=== PATIENT | female | born 1960 | race Hispanic/Latino ===

== ENCOUNTER 2017-08-07 22:46 | Emergency (ER) | payer MEDICARE ==
[2017-08-07 23:13] LABS: BASOPHILS % (AUTO) 0.7 % (0.0-5.0); EOSINOPHILS % (AUTO) 2.1 % (0.0-8.0); LYMPHOCYTES % (AUTO) 30.6 % (21.0-51.0); MEAN CORPUSCULAR HEMOGLOBIN 30.1 pg (27.0-33.0); MEAN CORPUSCULAR HGB CONC 34.3 g/dL (32.0-36.0); MEAN CORPUSCULAR VOLUME 87.6 fL (79-99); MONOCYTES % (AUTO) 9.3 % (3.0-13.0); NEUTROPHILS % (AUTO) 57.3 % (40.0-77.0); PLATELET COUNT (AUTO) 254 K/uL (130-400); RED BLOOD CELL COUNT(AUTO) 4.23 MIL/uL (4.00-5.50); RED CELL DISTRIBUTION WIDTH 12.1 % (11.0-15.5); WHITE BLOOD COUNT (AUTO) 6.8 K/uL (4.8-10.8)
[2017-08-07 23:31] LABS: CREATININE 0.5 mg/dL (0.5-1.5); POTASSIUM 3.9 mmol/L (3.5-5.1)
[2017-08-08] MEDS ORDERED: CEFTRIAXONE SODIUM 1 GM ONE (00:16)
[2017-08-08] MEDS ORDERED: LIDOCAINE HCL-MPF 1% 2ML VIAL ONE (00:16)
== END 2017-08-08 00:50 | disposition home or self-care (01) ==
LOC: EDH 22:46
DX: L03.116 Cellulitis of left lower limb (principal); E11.9 Type 2 diabetes mellitus without complications; I10 Essential (primary) hypertension
CPT/HCPCS: 36415; 73630; 80048; 85025; 96372; 99285; J0696; J3490

== ENCOUNTER 2017-08-11 21:19 | Inpatient (IN) | payer MEDICARE ==
[~2017-08-11] VITALS: Ht 149.9 cm; Wt 55.1 kg
[2017-08-11] MEDS ORDERED: SODIUM CHLORIDE 0.9% 1000ML 1,000 ML IV ONE (21:44)
[2017-08-11] MEDS ORDERED: ACETAMINOPHEN 325 MG TAB ONE (21:44)
[2017-08-11] MEDS ORDERED: VANCOMYCIN 1GM+NS 250ML 250 ML IV ONE (22:15)
[2017-08-11] MEDS ORDERED: CEFTRIAXONE SODIUM 1 GM ONE (22:15)
[2017-08-11 22:18] LABS: BASOPHILS % (AUTO) 0.6 % (0.0-5.0); EOSINOPHILS % (AUTO) 1.3 % (0.0-8.0); HEMATOCRIT 35.4 % (36-48); MEAN CORPUSCULAR HEMOGLOBIN 30.4 pg (27.0-33.0); MEAN CORPUSCULAR HGB CONC 34.9 g/dL (32.0-36.0); MEAN CORPUSCULAR VOLUME 87.1 fL (79-99); MONOCYTES % (AUTO) 7.8 % (3.0-13.0); NEUTROPHILS % (AUTO) 69.3 % (40.0-77.0); PLATELET COUNT (AUTO) 288 K/uL (130-400); RED BLOOD CELL COUNT(AUTO) 4.07 MIL/uL (4.00-5.50); RED CELL DISTRIBUTION WIDTH 12.1 % (11.0-15.5); WHITE BLOOD COUNT (AUTO) 7.2 K/uL (4.8-10.8)
[2017-08-11 22:24] LABS: CREATININE 0.6 mg/dL (0.5-1.5); POTASSIUM 3.9 mmol/L (3.5-5.1)
[2017-08-11 22:28] LABS: ALBUMIN 3.3 g/dL (3.5-5.0); BILIRUBIN,DIRECT 0.1 mg/dL (0.0-0.3); BILIRUBIN,TOTAL 0.5 mg/dL (0.2-1.0); TOTAL PROTEIN, SERUM 7.6 g/dL (6.0-8.3)
[2017-08-12] MEDS ORDERED: CLONIDINE HCL 0.1 MG TABLET PO PRN (00:45)
[2017-08-12] MEDS ORDERED: VANCOMYCIN PROTOCOL PER PHARMACY IV PRN (00:45)
[2017-08-12] MEDS ORDERED: MORPHINE SULFATE 2 MG/ML 1ML SYG IVP PRN ×2 (00:45)
[2017-08-12] MEDS ORDERED: DEXTROSE 50%-WATER 50 ML DISP.SYRIN IV PRN (00:45)
[2017-08-12] MEDS ORDERED: POTASSIUM CHLORIDE 20 MEQ ERTAB PO PRN (00:45)
[2017-08-12] MEDS ORDERED: ONDANSETRON HCL 4 MG/2 ML VIAL IVP PRN (00:45)
[2017-08-12] MEDS ORDERED: HYDRALAZINE HCL 20 MG/ML VIAL IV PRN (00:45)
[2017-08-12] MEDS ORDERED: POTASSIUM CHLORIDE 20MEQ/100ML 100 ML IV PRN (00:45)
[2017-08-12] MEDS ORDERED: ACETAMINOPHEN 325 MG TAB PO PRN (00:45)
[2017-08-12] MEDS ORDERED: POTASSIUM CHLORIDE 10% ELIXIR 20 MEQ/15 ML UDCUP PO PRN (00:45)
[2017-08-12] MEDS ORDERED: LACTULOSE 20 GM/30 ML UDCUP PO PRN (00:45)
[2017-08-12] MEDS ORDERED: SODIUM CHLORIDE 0.9% 1000ML 1,000 ML IV SCH (00:45)
[2017-08-12] MEDS ORDERED: LIDOCAINE HCL-MPF 1% 2ML VIAL IVP PRN (00:45)
[2017-08-12] MEDS ORDERED: GLUCAGON 1MG KIT 1 MG ML IM PRN (00:45)
[2017-08-12 01:13] LABS: APPEARANCE,URINE Cloudy (CLEAR); BILIRUBIN,URINE Negative (NEGATIVE); COLOR,URINE Yellow (YELLOW); GLUCOSE, URINE (UA) >=1000 mg/dL (NEGATIVE); KETONES,URINE Negative (NEGATIVE); LEUKOCYTE ESTERASE ,URINE Negative (NEGATIVE); NITRATE,URINE Negative (NEGATIVE); OCCULT BLOOD,URINE Trace (NEGATIVE); PROTEIN,URINE Negative (NEGATIVE); UROBILINOGEN,URINE 0.2 mg/dL (0.2-1.0)
[2017-08-12 01:20] LABS: BACTERIA,URINE None Seen /HPF (None Seen); MUCUS,URINE Few LPF (None Seen); SQUAMOUS EPITHELIAL CELL,UR Few /LPF (0-2); WBC,URINE 0-1 /HPF (0-1)
[2017-08-12 04:40] LABS: BASOPHILS % (AUTO) 0.8 % (0.0-5.0); EOSINOPHILS % (AUTO) 2.6 % (0.0-8.0); HEMATOCRIT 31.4 % (36-48); LYMPHOCYTES % (AUTO) 27.2 % (21.0-51.0); MEAN CORPUSCULAR HEMOGLOBIN 29.9 pg (27.0-33.0); MEAN CORPUSCULAR HGB CONC 34.2 g/dL (32.0-36.0); MEAN CORPUSCULAR VOLUME 87.5 fL (79-99); MONOCYTES % (AUTO) 10.9 % (3.0-13.0); NEUTROPHILS % (AUTO) 58.5 % (40.0-77.0); NUCLEATED RED BLOOD CELLS 0.1 % (0.0-0.19); PLATELET COUNT (AUTO) 222 K/uL (130-400); RED BLOOD CELL COUNT(AUTO) 3.58 MIL/uL (4.00-5.50); RED CELL DISTRIBUTION WIDTH 12.1 % (11.0-15.5)
[2017-08-12 04:47] LABS: CREATININE 0.4 mg/dL (0.5-1.5); POTASSIUM 3.4 mmol/L (3.5-5.1)
[2017-08-12 04:53] LABS: HEMOGLOBIN A1C 11.7 % (4.0-6.0)
[2017-08-12] MEDS ORDERED: POTASSIUM CHLORIDE 20 MEQ ERTAB PO ONE ×2 (05:02→08:27)
[2017-08-12 05:09] LABS: INR 1.06 (0.85-1.15); PROTHROMBIN TIME 11.1 SEC (9.6-11.6)
[2017-08-12 05:44] LABS: ERYTHROCYTE SEDIMENTATION RATE 55 MM/HR (0-15)
[2017-08-12] MEDS: INSULIN HUMULIN R 100 UNIT/ML 3ML SQ SCH ×4 (07:30→20:45)
[2017-08-12 09:11] VITALS: BP 129/96
[2017-08-12] MEDS ORDERED: ACETAMINOPHEN-CODEINE 300/30MG TAB PO PRN (09:30)
[2017-08-12] MEDS ORDERED: KETOROLAC TROMETHAMINE 15MG/ML IV PRN (09:30)
[2017-08-12 12:00] VITALS: BP 118/84
[2017-08-12] MEDS: FAMOTIDINE 20MG TAB 20 MG TAB PO SCH ×2 (12:36→20:39)
[2017-08-12] MEDS: LEVOFLOXACIN 500 MG/D5W 100 ML 100 ML IV SCH (12:36)
[2017-08-12] MEDS ORDERED: VANCOMYCIN 1GM+NS 250ML 250 ML IV SCH (12:45)
[2017-08-12] MEDS ORDERED: COMPOUND IV REFRIGERATED 1 EACH IVSOLN MISC PRN (13:00)
[2017-08-12] MEDS: VANCOMYCIN 0.75 GM in N.S. 250 ML IV SCH (14:48)
[2017-08-12 16:00] VITALS: BP 111/77
[2017-08-12 19:45] VITALS: BP 128/81
[2017-08-12] MEDS: ACETAMINOPHEN-CODEINE 300/30MG TAB PO PRN (20:39)
[2017-08-12 23:53] VITALS: BP 119/76
[2017-08-13] MEDS: VANCOMYCIN 0.75 GM in N.S. 250 ML IV SCH (00:34)
[2017-08-13 04:00] VITALS: BP 107/70
[2017-08-13 05:49] LABS: BASOPHILS % (AUTO) 0.3 % (0.0-5.0); EOSINOPHILS % (AUTO) 3.9 % (0.0-8.0); HEMATOCRIT 32.4 % (36-48); LYMPHOCYTES % (AUTO) 35.7 % (21.0-51.0); MEAN CORPUSCULAR HEMOGLOBIN 29.9 pg (27.0-33.0); MEAN CORPUSCULAR HGB CONC 34.1 g/dL (32.0-36.0); MEAN CORPUSCULAR VOLUME 87.6 fL (79-99); NEUTROPHILS % (AUTO) 51.1 % (40.0-77.0); PLATELET COUNT (AUTO) 264 K/uL (130-400); RED CELL DISTRIBUTION WIDTH 12.1 % (11.0-15.5); WHITE BLOOD COUNT (AUTO) 5.7 K/uL (4.8-10.8)
[2017-08-13 06:13] LABS: CREATININE 0.4 mg/dL (0.5-1.5)
[2017-08-13] MEDS: INSULIN HUMULIN R 100 UNIT/ML 3ML SQ SCH ×4 (06:34→20:44)
[2017-08-13 07:24] VITALS: BP 114/66
[2017-08-13] MEDS: LEVOFLOXACIN 500 MG/D5W 100 ML 100 ML IV SCH (10:09)
[2017-08-13] MEDS: FAMOTIDINE 20MG TAB 20 MG TAB PO SCH ×2 (10:09→20:39)
[2017-08-13] MEDS: ENOXAPARIN SODIUM 30 MG/0.3 ML SQ SCH (10:09)
[2017-08-13] MEDS: ASPIRIN 81MG TAB.CHEW PO SCH (10:09)
[2017-08-13 11:17] VITALS: BP 139/94
[2017-08-13] MEDS ORDERED: INSULIN HUMULIN R 100 UNIT/ML 3ML SQ ONE (12:06)
[2017-08-13 16:30] VITALS: BP 127/91
[2017-08-13] MEDS ORDERED: VANCOMYCIN 1.5 GM in SODIUM CHLORIDE 0.9% 250 ML IV SCH (16:45)
[2017-08-13 20:00] VITALS: BP 136/93
[2017-08-14] VITALS (19 sets, daily range): BP systolic 108–144; BP diastolic 71–95
[2017-08-14] MEDS: VANCOMYCIN 1GM+NS 250ML 250 ML IV SCH ×3 (05:42→21:55)
[2017-08-14] MEDS ORDERED: SODIUM CHLORIDE 0.9% 1000ML 1,000 ML IV ONE (06:17)
[2017-08-14] MEDS: INSULIN HUMULIN R 100 UNIT/ML 3ML SQ SCH ×4 (06:21→22:03)
[2017-08-14 06:26] LABS: BASOPHILS % (AUTO) 0.6 % (0.0-5.0); EOSINOPHILS % (AUTO) 4.2 % (0.0-8.0); HEMATOCRIT 33.4 % (36-48); LYMPHOCYTES % (AUTO) 33.3 % (21.0-51.0); MEAN CORPUSCULAR HGB CONC 35.2 g/dL (32.0-36.0); MONOCYTES % (AUTO) 7.2 % (3.0-13.0); NEUTROPHILS % (AUTO) 54.7 % (40.0-77.0); PLATELET COUNT (AUTO) 291 K/uL (130-400); RED CELL DISTRIBUTION WIDTH 12.1 % (11.0-15.5); WHITE BLOOD COUNT (AUTO) 5.4 K/uL (4.8-10.8)
[2017-08-14] MEDS ORDERED: BUPIVACAINE/PF 0.5% 30ML VIAL ONE (06:26)
[2017-08-14] MEDS ORDERED: LIDOCAINE HCL 1% 20 ML VIAL ONE (06:26)
[2017-08-14 06:28] LABS: CREATININE 0.5 mg/dL (0.5-1.5); POTASSIUM 3.9 mmol/L (3.5-5.1)
[2017-08-14] MEDS ORDERED: ONDANSETRON HCL 4 MG/2 ML VIAL ONE (06:45)
[2017-08-14] MEDS ORDERED: PROPOFOL 10 MG/ML 20ML VIAL IV ONE (06:45)
[2017-08-14] MEDS ORDERED: LIDOCAINE PF 2% 5ML ABBOJECT ONE (06:45)
[2017-08-14] MEDS ORDERED: FENTANYL CITRATE PF 50 MCG/1 ML 2ML VIAL ONE (06:47)
[2017-08-14] MEDS ORDERED: NEOMY SULF/BACITRAC ZN/POLY OINT 30GM TUBE TP ONE (07:03)
[2017-08-14] MEDS: ENOXAPARIN SODIUM 30 MG/0.3 ML SQ SCH (09:00)
[2017-08-14] MEDS: ASPIRIN 81MG TAB.CHEW PO SCH (09:57)
[2017-08-14] MEDS: FAMOTIDINE 20MG TAB 20 MG TAB PO SCH ×2 (09:57→21:50)
[2017-08-14] MEDS: LEVOFLOXACIN 500 MG/D5W 100 ML 100 ML IV SCH (09:57)
[2017-08-14] MEDS: MUPIROCIN OINTMENT 22 GM TUBE TP SCH (15:08)
[2017-08-14] MEDS ORDERED: PREG50 PO (15:24)
[2017-08-14] MEDS ORDERED: LISI-613 PO (15:24)
[2017-08-14] MEDS ORDERED: INSU100I24 SQ (15:24)
[2017-08-14] MEDS: PREGABALIN 25 MG CAP PO SCH (21:50)
[2017-08-14] MEDS: INSULIN GLARGINE 100 UNITS/ML 10 ML VIAL SQ SCH (22:02)
[2017-08-15] VITALS: BP 123/84
[2017-08-15 04:00] VITALS: BP 124/87
[2017-08-15 05:29] LABS: HEMATOCRIT 32.1 % (36-48); MEAN CORPUSCULAR HGB CONC 34.4 g/dL (32.0-36.0); MEAN CORPUSCULAR VOLUME 87.2 fL (79-99); PLATELET COUNT (AUTO) 315 K/uL (130-400); RED BLOOD CELL COUNT(AUTO) 3.68 MIL/uL (4.00-5.50); RED CELL DISTRIBUTION WIDTH 12.1 % (11.0-15.5); WHITE BLOOD COUNT (AUTO) 6.3 K/uL (4.8-10.8)
[2017-08-15 05:40] LABS: CREATININE 0.5 mg/dL (0.5-1.5); POTASSIUM 3.7 mmol/L (3.5-5.1)
[2017-08-15] MEDS ORDERED: COMPOUND IV REFRIGERATED 1 EACH IVSOLN MISC PRN (06:30)
[2017-08-15] MEDS: VANCOMYCIN 1.25 GM in SODIUM CHLORIDE 0.9% 250 ML IV SCH ×3 (06:48→23:08)
[2017-08-15] MEDS: INSULIN HUMULIN R 100 UNIT/ML 3ML SQ SCH ×4 (06:53→21:00)
[2017-08-15 08:00] VITALS: BP 133/92
[2017-08-15] MEDS: INSULIN DEGLUDEC 18 UNIT SQ SCH (09:00)
[2017-08-15] MEDS: PREGABALIN 25 MG CAP PO SCH ×3 (10:49→20:33)
[2017-08-15] MEDS: LISINOPRIL 20 MG TABLET PO SCH (10:49)
[2017-08-15] MEDS: ASPIRIN 81MG TAB.CHEW PO SCH (10:49)
[2017-08-15] MEDS: LEVOFLOXACIN 500 MG/D5W 100 ML 100 ML IV SCH (10:50)
[2017-08-15] MEDS: ACETAMINOPHEN-CODEINE 300/30MG TAB PO PRN (10:50)
[2017-08-15] MEDS: MUPIROCIN OINTMENT 22 GM TUBE TP SCH (10:50)
[2017-08-15] MEDS: ENOXAPARIN SODIUM 30 MG/0.3 ML SQ SCH (11:00)
[2017-08-15] MEDS: FAMOTIDINE 20MG TAB 20 MG TAB PO SCH ×2 (11:00→20:32)
[2017-08-15 11:51] VITALS: BP 129/92
[2017-08-15 16:00] VITALS: BP 120/88
[2017-08-15 20:00] VITALS: BP 117/83
[2017-08-15] MEDS: INSULIN GLARGINE 100 UNITS/ML 10 ML VIAL SQ SCH (21:48)
[2017-08-16] VITALS: BP 110/74
[2017-08-16 04:00] VITALS: BP 115/82
[2017-08-16] MEDS: ACETAMINOPHEN-CODEINE 300/30MG TAB PO PRN ×2 (04:11→10:20)
[2017-08-16] MEDS: VANCOMYCIN 1.25 GM in SODIUM CHLORIDE 0.9% 250 ML IV SCH ×2 (07:05→14:00)
[2017-08-16 07:30] VITALS: BP 120/81
[2017-08-16] MEDS: INSULIN HUMULIN R 100 UNIT/ML 3ML SQ SCH ×2 (07:30→11:30)
[2017-08-16] MEDS: INSULIN DEGLUDEC 18 UNIT SQ SCH (09:00)
[2017-08-16] MEDS: PREGABALIN 25 MG CAP PO SCH ×2 (09:00→14:00)
[2017-08-16] MEDS: FAMOTIDINE 20MG TAB 20 MG TAB PO SCH (10:17)
[2017-08-16] MEDS: ENOXAPARIN SODIUM 30 MG/0.3 ML SQ SCH (10:17)
[2017-08-16] MEDS: ASPIRIN 81MG TAB.CHEW PO SCH (10:17)
[2017-08-16] MEDS: LISINOPRIL 20 MG TABLET PO SCH (10:18)
[2017-08-16] MEDS: MUPIROCIN OINTMENT 22 GM TUBE TP SCH (10:18)
[2017-08-16] MEDS: LEVOFLOXACIN 500 MG/D5W 100 ML 100 ML IV SCH (10:18)
== END 2017-08-16 16:30 | disposition home health service (06) | DRG 240 ==
LOC: EDH 21:19 → EDHIP 23:53 → 4CH 08-12 08:23
PROVIDERS: ADMIT Internal Medicine; ATTEND Internal Medicine
PROC: 0Y6N0ZB Detachment at Left Foot, Partial 2nd Ray, Open Approach (ICD-10-PCS; principal; 2017-08-14 07:00)
DX: E11.52 Type 2 diabetes mellitus with diabetic peripheral angiopathy with gangrene (principal); E11.42 Type 2 diabetes mellitus with diabetic polyneuropathy; E11.621 Type 2 diabetes mellitus with foot ulcer; L03.116 Cellulitis of left lower limb; M86.8X7 Other osteomyelitis, ankle and foot; E11.65 Type 2 diabetes mellitus with hyperglycemia; L97.509 Non-pressure chronic ulcer of other part of unspecified foot with unspecified severity; E11.69 Type 2 diabetes mellitus with other specified complication; I10 Essential (primary) hypertension; Z90.49 Acquired absence of other specified parts of digestive tract; Z28.21 Immunization not carried out because of patient refusal
CPT/HCPCS: 36415; 71045; 73630; 80048; 80076; 80202; 81001; 82948; 83036; 83605; 85025; 85027; 85610; 85651; 87040; 87070; 87076; 87077; 87186; 88305; 93005; 93925; 96372; J0696; J1650; J1815; J1956; J2001; J2405; J2704; J3010; J3370; J3490; J7030

== ENCOUNTER → 2017-08-23 | Outpatient (CLI) | payer MEDICARE ==
[~2017-08-23] MED LIST: INSU100I24 SQ; LISI-613 PO; PREG50 PO
[2017-08-23 14:22] VITALS: BP 148/102
== END | disposition home or self-care (01) ==
LOC: WHH 08:45
PROVIDERS: ATTEND Podiatrist Foot & Ankle Surgery
DX: T87.89 Other complications of amputation stump (principal); E11.621 Type 2 diabetes mellitus with foot ulcer; L97.521 Non-pressure chronic ulcer of other part of left foot limited to breakdown of skin; E11.42 Type 2 diabetes mellitus with diabetic polyneuropathy; I10 Essential (primary) hypertension; E11.69 Type 2 diabetes mellitus with other specified complication; M86.8X7 Other osteomyelitis, ankle and foot; E11.65 Type 2 diabetes mellitus with hyperglycemia; E11.52 Type 2 diabetes mellitus with diabetic peripheral angiopathy with gangrene; I96 Gangrene, not elsewhere classified; Y83.5 Amputation of limb(s) as the cause of abnormal reaction of the patient, or of later complication, without mention of misadventure at the time of the procedure
CPT/HCPCS: 11042; A4450; A6209; G0463

== ENCOUNTER → 2017-08-30 | Outpatient (CLI) | payer MEDICARE ==
[~2017-08-30] MED LIST changes: +LIDOCAINE/PRILOCAINE CREAM 5GM TUBE TP ONE
[2017-08-30 15:27] VITALS: BP 136/98
== END | disposition home or self-care (01) ==
LOC: WHH 09:30
PROVIDERS: ATTEND Podiatrist Foot & Ankle Surgery
DX: T87.89 Other complications of amputation stump (principal); E11.621 Type 2 diabetes mellitus with foot ulcer; L97.521 Non-pressure chronic ulcer of other part of left foot limited to breakdown of skin; I10 Essential (primary) hypertension; E11.69 Type 2 diabetes mellitus with other specified complication; M86.8X7 Other osteomyelitis, ankle and foot; E11.42 Type 2 diabetes mellitus with diabetic polyneuropathy; E11.52 Type 2 diabetes mellitus with diabetic peripheral angiopathy with gangrene; Z90.49 Acquired absence of other specified parts of digestive tract; Y83.5 Amputation of limb(s) as the cause of abnormal reaction of the patient, or of later complication, without mention of misadventure at the time of the procedure
CPT/HCPCS: 11042; A6209; J3490; L3260

== ENCOUNTER 2018-04-10 11:39 | Emergency (ER) | payer MEDICARE ==
[~2018-04-10 11:39] MED LIST changes: -LIDOCAINE/PRILOCAINE CREAM 5GM TUBE TP ONE
== END 2018-04-10 12:11 | disposition home or self-care (01) ==
LOC: EDH 11:39
DX: S91.312A Laceration without foreign body, left foot, initial encounter (principal); E11.9 Type 2 diabetes mellitus without complications; I10 Essential (primary) hypertension; X58.XXXA Exposure to other specified factors, initial encounter; Y93.89 Activity, other specified; Y92.098 Other place in other non-institutional residence as the place of occurrence of the external cause; Y99.8 Other external cause status

== ENCOUNTER 2018-09-26 11:54 | Emergency (ER) | payer MEDICARE | END 2018-09-26 12:57 | disposition home or self-care (01) | LOC: EDH 11:54 | DX: L03.115 Cellulitis of right lower limb (principal); I10 Essential (primary) hypertension; E11.9 Type 2 diabetes mellitus without complications ==

== ENCOUNTER 2018-10-11 19:38 | Emergency (ER) | payer MEDICARE ==
[2018-10-11 20:05] LABS: BASOPHILS % (AUTO) 1.2 % (0.0-5.0); EOSINOPHILS % (AUTO) 3.1 % (0.0-8.0); HEMATOCRIT 41.3 % (36-48); LYMPHOCYTES % (AUTO) 41.2 % (21.0-51.0); MEAN CORPUSCULAR HEMOGLOBIN 29.7 pg (27.0-33.0); MEAN CORPUSCULAR HGB CONC 33.6 g/dL (32.0-36.0); MEAN CORPUSCULAR VOLUME 88.4 fL (79-99); MONOCYTES % (AUTO) 6.2 % (3.0-13.0); NEUTROPHILS % (AUTO) 48.3 % (40.0-77.0); PLATELET COUNT (AUTO) 196 K/uL (130-400); RED BLOOD CELL COUNT(AUTO) 4.67 MIL/uL (4.00-5.50); RED CELL DISTRIBUTION WIDTH 13.4 % (11.0-15.5); WHITE BLOOD COUNT (AUTO) 5.6 K/uL (4.8-10.8)
[2018-10-11 20:14] LABS: CREATININE 0.6 mg/dL (0.5-1.5); POTASSIUM 3.8 mmol/L (3.5-5.1)
[2018-10-11 20:19] LABS: ALBUMIN 4.1 g/dL (3.5-5.0); BILIRUBIN,TOTAL 0.5 mg/dL (0.2-1.0)
[2018-10-11] MEDS ORDERED: CEFTRIAXONE SODIUM 2 GM VIAL IVP ONE (20:21)
== END 2018-10-11 22:17 | disposition home or self-care (01) ==
LOC: EDH 19:38
DX: L03.031 Cellulitis of right toe (principal); I10 Essential (primary) hypertension; E11.9 Type 2 diabetes mellitus without complications; Z98.890 Other specified postprocedural states
CPT/HCPCS: 36415; 73630; 80053; 85025; 96374; 99285; J0696

== ENCOUNTER → 2018-10-31 | Outpatient (CLI) | payer MEDICARE ==
[~2018-10-31] MED LIST changes: +GLIP10TA9 PO; +HONEY 1 APPL/ML TUBE TP ONE; +LIDOCAINE/PRILOCAINE CREAM 5GM TUBE TP ONE; +METF-444 PO
[2018-10-31 15:01] VITALS: BP 121/77
== END | disposition home or self-care (01) ==
LOC: WHH 10:15
PROVIDERS: ATTEND Podiatrist Foot & Ankle Surgery
DX: E11.621 Type 2 diabetes mellitus with foot ulcer (principal); L97.521 Non-pressure chronic ulcer of other part of left foot limited to breakdown of skin; I10 Essential (primary) hypertension; E11.69 Type 2 diabetes mellitus with other specified complication; M86.8X7 Other osteomyelitis, ankle and foot; E11.42 Type 2 diabetes mellitus with diabetic polyneuropathy; E11.52 Type 2 diabetes mellitus with diabetic peripheral angiopathy with gangrene; Z90.49 Acquired absence of other specified parts of digestive tract
CPT/HCPCS: 11042; A4450; J3490; L3260

== ENCOUNTER → 2018-11-14 | Outpatient (CLI) | payer MEDICARE ==
[~2018-11-14] MED LIST changes: -HONEY 1 APPL/ML TUBE TP ONE; -LIDOCAINE/PRILOCAINE CREAM 5GM TUBE TP ONE
[2018-11-14 11:08] LABS: BASOPHILS % (AUTO) 0.6 % (0.0-5.0); EOSINOPHILS % (AUTO) 3.5 % (0.0-8.0); HEMATOCRIT 36.2 % (36-48); LYMPHOCYTES % (AUTO) 35.6 % (21.0-51.0); MEAN CORPUSCULAR HGB CONC 33.9 g/dL (32.0-36.0); MEAN CORPUSCULAR VOLUME 88.5 fL (79-99); NEUTROPHILS % (AUTO) 54.3 % (40.0-77.0); NUCLEATED RED BLOOD CELLS 0.1 % (0.0-0.19); PLATELET COUNT (AUTO) 194 K/uL (130-400); RED BLOOD CELL COUNT(AUTO) 4.09 MIL/uL (4.00-5.50); WHITE BLOOD COUNT (AUTO) 5.1 K/uL (4.8-10.8)
[2018-11-14 11:21] LABS: CREATININE 0.5 mg/dL (0.5-1.5); POTASSIUM 3.6 mmol/L (3.5-5.1)
[2018-11-14 11:26] LABS: ALBUMIN 3.4 g/dL (3.5-5.0); BILIRUBIN,TOTAL 0.3 mg/dL (0.2-1.0); TOTAL PROTEIN, SERUM 7.4 g/dL (6.0-8.3)
[2018-11-14 14:30] VITALS: BP 144/97
== END | disposition home or self-care (01) ==
LOC: WHH 10:00
PROVIDERS: ATTEND Podiatrist Foot & Ankle Surgery
DX: E11.621 Type 2 diabetes mellitus with foot ulcer (principal); L97.521 Non-pressure chronic ulcer of other part of left foot limited to breakdown of skin; I10 Essential (primary) hypertension; E11.69 Type 2 diabetes mellitus with other specified complication; M86.8X7 Other osteomyelitis, ankle and foot; E11.42 Type 2 diabetes mellitus with diabetic polyneuropathy; E11.52 Type 2 diabetes mellitus with diabetic peripheral angiopathy with gangrene; I96 Gangrene, not elsewhere classified; Z90.49 Acquired absence of other specified parts of digestive tract
CPT/HCPCS: 36415; 80053; 85025; G0463

== ENCOUNTER → 2018-11-15 | Outpatient (CLI) | payer MEDICARE ==
[~2018-11-15] MED LIST changes: +AMOX125T PO; +GADODIAMIDE 10 MMOL/20 ML VIAL IV ONE; +LEVO500T2 PO
== END | disposition home or self-care (01) ==
LOC: RAH 16:08
PROVIDERS: ATTEND Podiatrist Foot & Ankle Surgery
DX: E11.621 Type 2 diabetes mellitus with foot ulcer (principal)
CPT/HCPCS: 73720; A9579

== ENCOUNTER → 2018-11-28 | Outpatient (CLI) | payer MEDICARE ==
[~2018-11-28] MED LIST changes: -GADODIAMIDE 10 MMOL/20 ML VIAL IV ONE
[2018-11-28 13:44] VITALS: BP 130/92
== END | disposition home or self-care (01) ==
LOC: WHH 10:00
PROVIDERS: ATTEND Podiatrist Foot & Ankle Surgery
DX: T87.89 Other complications of amputation stump (principal); E11.621 Type 2 diabetes mellitus with foot ulcer; L97.511 Non-pressure chronic ulcer of other part of right foot limited to breakdown of skin; E11.52 Type 2 diabetes mellitus with diabetic peripheral angiopathy with gangrene; I96 Gangrene, not elsewhere classified; E11.42 Type 2 diabetes mellitus with diabetic polyneuropathy; E11.69 Type 2 diabetes mellitus with other specified complication; M86.8X7 Other osteomyelitis, ankle and foot; I10 Essential (primary) hypertension; Z89.422 Acquired absence of other left toe(s); Z90.49 Acquired absence of other specified parts of digestive tract; Y83.5 Amputation of limb(s) as the cause of abnormal reaction of the patient, or of later complication, without mention of misadventure at the time of the procedure
CPT/HCPCS: G0463

== ENCOUNTER 2018-12-12 09:15 | Outpatient (CLI) | payer MEDICARE ==
[2018-12-12 12:34] VITALS: BP 117/80
== END 2018-12-12 15:13 | disposition home or self-care (01) ==
LOC: WHH 09:15
PROVIDERS: ATTEND Podiatrist Foot & Ankle Surgery
DX: T87.89 Other complications of amputation stump (principal); E11.621 Type 2 diabetes mellitus with foot ulcer; L97.511 Non-pressure chronic ulcer of other part of right foot limited to breakdown of skin; E11.52 Type 2 diabetes mellitus with diabetic peripheral angiopathy with gangrene; I96 Gangrene, not elsewhere classified; E11.42 Type 2 diabetes mellitus with diabetic polyneuropathy; E11.69 Type 2 diabetes mellitus with other specified complication; M86.8X7 Other osteomyelitis, ankle and foot; I10 Essential (primary) hypertension; F32.9 Major depressive disorder, single episode, unspecified; Z89.422 Acquired absence of other left toe(s); Z79.4 Long term (current) use of insulin; Z90.49 Acquired absence of other specified parts of digestive tract; Z79.899 Other long term (current) drug therapy; Z79.84 Long term (current) use of oral hypoglycemic drugs; Y83.5 Amputation of limb(s) as the cause of abnormal reaction of the patient, or of later complication, without mention of misadventure at the time of the procedure
CPT/HCPCS: G0463

== ENCOUNTER 2019-04-04 04:07 | Inpatient (IN) | payer MEDICARE ==
[~2019-04-04] VITALS: Ht 124.5 cm; Wt 56.8 kg
[2019-04-04 04:37] LABS: BASOPHILS % (AUTO) 0.4 % (0.0-5.0); EOSINOPHILS % (AUTO) 0.1 % (0.0-8.0); HEMATOCRIT 36.5 % (36-48); MEAN CORPUSCULAR HEMOGLOBIN 30.9 pg (27.0-33.0); MEAN CORPUSCULAR HGB CONC 35.1 g/dL (32.0-36.0); MONOCYTES % (AUTO) 5.9 % (3.0-13.0); NEUTROPHILS % (AUTO) 87.6 % (40.0-77.0); PLATELET COUNT (AUTO) 262 K/uL (130-400); RED BLOOD CELL COUNT(AUTO) 4.15 MIL/uL (4.00-5.50); RED CELL DISTRIBUTION WIDTH 12.6 % (11.0-15.5); WHITE BLOOD COUNT (AUTO) 17.3 K/uL (4.8-10.8)
[2019-04-04] MEDS ORDERED: ONDANSETRON HCL 4 MG/2 ML VIAL ONE (04:38)
[2019-04-04] MEDS ORDERED: ACETAMINOPHEN EXTRA STRENGTH 500 MG TABLET ONE (04:38)
[2019-04-04] MEDS ORDERED: SODIUM CHLORIDE 0.9% 1000ML 1,000 ML IV ONE ×2 (04:39→07:48)
[2019-04-04 04:53] LABS: CREATININE 0.7 mg/dL (0.5-1.5); INR 1.06 (0.85-1.15); PARTIAL THROMBOPLASTIN TIME 27.5 SEC (26.3-35.5); POTASSIUM 3.8 mmol/L (3.5-5.1); PROTHROMBIN TIME 11.1 SEC (9.6-11.6)
[2019-04-04 04:55] LABS: ALBUMIN 3.3 g/dL (3.5-5.0); BILIRUBIN,TOTAL 1.1 mg/dL (0.2-1.0); TOTAL PROTEIN, SERUM 7.9 g/dL (6.0-8.3)
[2019-04-04 04:57] LABS: APPEARANCE,URINE Cloudy (CLEAR); BILIRUBIN,URINE Negative (NEGATIVE); COLOR,URINE Yellow (YELLOW); GLUCOSE, URINE (UA) >=1000 mg/dL (NEGATIVE); KETONES,URINE 40 mg/dL (NEGATIVE); LEUKOCYTE ESTERASE ,URINE Small (NEGATIVE); NITRATE,URINE Positive (NEGATIVE); OCCULT BLOOD,URINE Moderate (NEGATIVE); PH,URINE 8.5 (5.0-8.0); PROTEIN,URINE POS 2+ mg/dL (NEGATIVE)
[2019-04-04 05:04] LABS: BACTERIA,URINE Moderate /HPF (None Seen); MUCUS,URINE Few LPF (None Seen); TRANSITIONAL EPI CELLS,URINE Moderate /HPF (None Seen)
[2019-04-04] MEDS ORDERED: INSULIN HUMULIN R 100 UNIT/ML 3ML ONE (09:13)
[2019-04-04 09:35] VITALS: BP 95/64
[2019-04-04 11:00] VITALS: BP 91/56
[2019-04-04] MEDS ORDERED: DEXTROSE 50%-WATER 50 ML DISP.SYRIN IV PRN (12:15)
[2019-04-04] MEDS ORDERED: GLUCAGON 1MG KIT 1 MG ML IM PRN (12:15)
[2019-04-04] MEDS: SODIUM CHLORIDE 0.9% 1000ML 1,000 ML IV SCH ×3 (13:06→22:08)
[2019-04-04] MEDS: CEFTRIAXONE SODIUM 1 GM IVP SCH (13:07)
[2019-04-04] MEDS: INSULIN R PO SS1 SQ SCH ×3 (13:24→21:18)
[2019-04-04] MEDS: ACETAMINOPHEN 325 MG TAB PO PRN (15:49)
[2019-04-04] MEDS: ONDANSETRON HCL 4 MG/2 ML VIAL IVP PRN (15:51)
[2019-04-04 16:00] VITALS: BP 116/67
--- NOTE | 2019-04-04 16:49 | NUR ---
ADMISSION NOTE Received patient in AM at 0930 from ER. Patient was started on NS at 150mL/hr and she received a dose of rocephin 1mg IV to right hand # 20g; site healthy and patent. Patient stayed in bed without any problems. She subsequently developed nausea, emesis, and a headache and was medicated. At this time she is back to feeling better and stable. She states she had her flu vaccine for this season already at her doctor's office. Refuses pneumonia vaccine. When asked about her home medications, stated they are "somewhere at home". Reminded that medications are needed to enter in computer for physician to restart. Stated her family will bring them.
[2019-04-04 20:00] VITALS: BP 96/56
[2019-04-05 00:38] VITALS: BP 142/71
[2019-04-05] MEDS: CEFTRIAXONE SODIUM 1 GM IVP SCH ×2 (00:46→13:24)
[2019-04-05] MEDS: ONDANSETRON HCL 4 MG/2 ML VIAL IVP PRN (02:08)
[2019-04-05] MEDS: ACETAMINOPHEN 325 MG TAB PO PRN (02:14)
[2019-04-05 04:00] VITALS: BP 140/83
[2019-04-05] MEDS: INSULIN R PO SS1 SQ SCH ×4 (06:46→21:49)
[2019-04-05 08:00] VITALS: BP 149/95
--- NOTE | 2019-04-05 08:00 | NUR ---
AM SHIFT ASSESSMENT
[2019-04-05 11:59] VITALS: BP 143/91
[2019-04-05] MEDS: SODIUM CHLORIDE 0.9% 1000ML 1,000 ML IV SCH (13:31)
--- NOTE | 2019-04-05 14:09 | NUR ---
DCP CM met with pt discussed dc plans. Pt is independent prior to admission, lives at home w/daughter. Denies any equipments/services. Feels safe to go back home, daughter and son able to assist with transportation and needs as necessary. DC plan to home once stable. CM to cont to follow up. Addendum: 04/05/19 at 1410 by CHAZ HARTMAN LVN CM Amended: Links added.
[2019-04-05 16:00] VITALS: BP 151/99
[2019-04-05 20:00] VITALS: BP 134/87
[2019-04-06] VITALS (7 sets, daily range): BP systolic 128–162; BP diastolic 78–96
[2019-04-06] MEDS: CEFTRIAXONE SODIUM 1 GM IVP SCH ×2 (01:08→12:11)
[2019-04-06] MEDS: SODIUM CHLORIDE 0.9% 1000ML 1,000 ML IV SCH ×2 (04:25→15:42)
[2019-04-06] MEDS: ACETAMINOPHEN 325 MG TAB PO PRN (04:29)
[2019-04-06] MEDS: INSULIN R PO SS1 SQ SCH ×4 (06:56→21:43)
[2019-04-06 10:26] LABS: BASOPHILS % (AUTO) 0.5 % (0.0-5.0); EOSINOPHILS % (AUTO) 1.3 % (0.0-8.0); HEMATOCRIT 33.4 % (36-48); LYMPHOCYTES % (AUTO) 22.3 % (21.0-51.0); MEAN CORPUSCULAR HEMOGLOBIN 30.8 pg (27.0-33.0); MEAN CORPUSCULAR HGB CONC 33.6 g/dL (32.0-36.0); MEAN CORPUSCULAR VOLUME 91.6 fL (79-99); MONOCYTES % (AUTO) 7.7 % (3.0-13.0); NEUTROPHILS % (AUTO) 68.2 % (40.0-77.0); PLATELET COUNT (AUTO) 219 K/uL (130-400); RED BLOOD CELL COUNT(AUTO) 3.64 MIL/uL (4.00-5.50); RED CELL DISTRIBUTION WIDTH 12.8 % (11.0-15.5); WHITE BLOOD COUNT (AUTO) 5.8 K/uL (4.8-10.8)
[2019-04-06 11:49] LABS: ERYTHROCYTE SEDIMENTATION RATE 75 MM/HR (0-30)
[2019-04-06 12:14] LABS: CREATININE 0.5 mg/dL (0.5-1.5); POTASSIUM 3.2 mmol/L (3.5-5.1)
[2019-04-06 12:17] LABS: MAGNESIUM 1.4 mg/dL (1.80-2.40); PHOSPHORUS 2.4 mg/dL (2.5-4.9)
[2019-04-06] MEDS ORDERED: PREGABALIN 25 MG CAP PO SCH (14:00)
[2019-04-06] MEDS: METFORMIN HCL 500 MG TABLET PO SCH (17:23)
[2019-04-06] MEDS ORDERED: POTASSIUM CHLORIDE 20MEQ/100ML 100 ML IV PRN (18:30)
[2019-04-06] MEDS ORDERED: POTASSIUM CHLORIDE 10% ELIXIR 20 MEQ/15 ML UDCUP PO PRN (18:30)
[2019-04-06] MEDS ORDERED: LIDOCAINE HCL-MPF 1% 2ML VIAL IV PRN (18:30)
[2019-04-06] MEDS: MAGNESIUM 2GM PREMIX 50ML 50 ML IV PRN (18:56)
[2019-04-06] MEDS: GABAPENTIN 100 MG CAPSULE PO SCH (20:58)
[2019-04-07] MEDS: CEFTRIAXONE SODIUM 1 GM IVP SCH ×2 (01:12→12:48)
[2019-04-07] MEDS: POTASSIUM CHLORIDE 20 MEQ ERTAB PO PRN ×2 (01:16→03:35)
[2019-04-07 03:00] VITALS: BP 137/89
[2019-04-07 05:34] LABS: EOSINOPHILS % (AUTO) 2.1 % (0.0-8.0); HEMATOCRIT 31.6 % (36-48); LYMPHOCYTES % (AUTO) 33.1 % (21.0-51.0); MEAN CORPUSCULAR HEMOGLOBIN 30.5 pg (27.0-33.0); MEAN CORPUSCULAR HGB CONC 33.8 g/dL (32.0-36.0); MEAN CORPUSCULAR VOLUME 90.1 fL (79-99); MONOCYTES % (AUTO) 8.3 % (3.0-13.0); NEUTROPHILS % (AUTO) 55.5 % (40.0-77.0); PLATELET COUNT (AUTO) 266 K/uL (130-400); RED BLOOD CELL COUNT(AUTO) 3.51 MIL/uL (4.00-5.50); RED CELL DISTRIBUTION WIDTH 12.9 % (11.0-15.5); WHITE BLOOD COUNT (AUTO) 4.5 K/uL (4.8-10.8)
[2019-04-07 05:41] LABS: CREATININE 0.6 mg/dL (0.5-1.5); MAGNESIUM 1.9 mg/dL (1.80-2.40)
[2019-04-07] MEDS: INSULIN R PO SS1 SQ SCH ×4 (06:31→20:31)
[2019-04-07] MEDS: MAGNESIUM 2GM PREMIX 50ML 50 ML IV PRN (06:34)
[2019-04-07 08:00] VITALS: BP 141/96
[2019-04-07] MEDS: GABAPENTIN 100 MG CAPSULE PO SCH ×2 (09:20→20:16)
[2019-04-07] MEDS: LISINOPRIL 20 MG TABLET PO SCH (09:21)
[2019-04-07] MEDS: METFORMIN HCL 500 MG TABLET PO SCH ×3 (09:22→16:22)
[2019-04-07 12:00] VITALS: BP 146/90
--- NOTE | 2019-04-07 13:40 | NUR ---
PLACED ON CONTACT ISOLATION FOR REPORT OF ESBL IN BLOOD,
[2019-04-07] MEDS: ZOSYN 3.375GM+NS 50ML 50 ML IV SCH ×2 (15:02→22:47)
[2019-04-07 16:00] VITALS: BP 145/99
[2019-04-07 19:48] VITALS: BP 154/95
[2019-04-07] MEDS ORDERED: LACTULOSE 20 GM/30 ML UDCUP PO PRN (20:30)
[2019-04-07 23:57] VITALS: BP 155/95
[2019-04-08 03:20] VITALS: BP 157/93
[2019-04-08] MEDS: ZOSYN 3.375GM+NS 50ML 50 ML IV SCH ×3 (04:55→23:24)
[2019-04-08] MEDS: INSULIN R PO SS1 SQ SCH ×4 (06:35→23:32)
[2019-04-08 07:36] VITALS: BP 144/99
[2019-04-08] MEDS: METFORMIN HCL 500 MG TABLET PO SCH ×3 (09:13→17:31)
[2019-04-08] MEDS: GABAPENTIN 100 MG CAPSULE PO SCH ×2 (09:13→23:24)
[2019-04-08] MEDS: LISINOPRIL 20 MG TABLET PO SCH (09:13)
[2019-04-08 12:00] VITALS: BP 163/115
[2019-04-08] MEDS ORDERED: HYDRALAZINE HCL 20 MG/ML VIAL IV PRN (14:15)
[2019-04-08] MEDS ORDERED: HYDROCHLOROTHIAZIDE 25 MG TABLET PO SCH (14:15)
[2019-04-08 16:00] VITALS: BP 148/73
[2019-04-08 19:59] VITALS: BP 123/80
[2019-04-08 23:55] VITALS: BP 148/96
[2019-04-09 03:39] VITALS: BP 118/75
[2019-04-09] MEDS: ZOSYN 3.375GM+NS 50ML 50 ML IV SCH ×3 (06:19→21:16)
[2019-04-09] MEDS: INSULIN R PO SS1 SQ SCH ×4 (06:23→21:17)
[2019-04-09 08:00] VITALS: BP 136/81
[2019-04-09] MEDS ORDERED: METFORMIN HCL 500 MG TABLET PO SCH (08:00)
[2019-04-09 08:09] LABS: EOSINOPHILS % (AUTO) 3.9 % (0.0-8.0); HEMATOCRIT 34.1 % (36-48); MEAN CORPUSCULAR HEMOGLOBIN 30.3 pg (27.0-33.0); MEAN CORPUSCULAR HGB CONC 33.8 g/dL (32.0-36.0); MEAN CORPUSCULAR VOLUME 89.9 fL (79-99); MONOCYTES % (AUTO) 7.4 % (3.0-13.0); NEUTROPHILS % (AUTO) 49.7 % (40.0-77.0); PLATELET COUNT (AUTO) 334 K/uL (130-400); RED BLOOD CELL COUNT(AUTO) 3.79 MIL/uL (4.00-5.50); WHITE BLOOD COUNT (AUTO) 4.9 K/uL (4.8-10.8)
[2019-04-09 08:17] LABS: CREATININE 0.7 mg/dL (0.5-1.5); POTASSIUM 3.9 mmol/L (3.5-5.1)
[2019-04-09 08:31] LABS: HEMOGLOBIN A1C 12.2 % (4.0-6.0)
--- NOTE | 2019-04-09 08:50 | NUR ---
DR. WELCH IN TO SEE PT, OK TO DC IF CT SCAN SHOWS NO FURTHER SIGNS OF BLEED. Addendum: 04/09/19 at 1433 by WILTON STORM RN RN ABOVE ENTRY ENTERED ON WRONG PATIENT.
[2019-04-09] MEDS: GABAPENTIN 100 MG CAPSULE PO SCH ×2 (09:03→21:16)
[2019-04-09] MEDS: HYDROCHLOROTHIAZIDE 25 MG TABLET PO SCH (09:03)
[2019-04-09] MEDS: LISINOPRIL 20 MG TABLET PO SCH (09:04)
[2019-04-09] MEDS: GLIPIZIDE 5 MG TABLET PO SCH ×2 (09:04→17:00)
[2019-04-09 09:49] LABS: INR 0.95 (0.85-1.15)
[2019-04-09 11:00] VITALS: BP 137/80
--- NOTE | 2019-04-09 11:00 | NUR ---
PT ACCEPTED AT [facility] LINE PENDING, L[facility] STRE[facility]ER RN NOTIFIED, VERBALIZED UNDERSTANDING Addendum: 04/09/19 at 1512 by MELVINA MONTANO RN CM Amended: Links added.
--- NOTE | 2019-04-09 16:30 | NUR ---
PICC LINE PLACED FOR INFUSION OF AIR QUALITY ENGINEER ABX.
[2019-04-09 16:50] VITALS: BP 123/85
[2019-04-09] MEDS: METFORMIN HCL 500 MG TABLET PO SCH (17:00)
--- NOTE | 2019-04-09 17:00 | NUR ---
CALL TO RADIOLOGY T/C PLACED TO RADIOLOGY AND SPOKE WITH GODFREY TO INFORM HER IF RADIOLOGIST CAN DO STAT READING ,STATES WILL INFORM.
--- NOTE | 2019-04-09 18:04 | NUR ---
PENDING DISCHARGE TO [facility] [place] TODAY.
--- NOTE | 2019-04-09 18:41 | NUR ---
CALL TO [facility] [employer] MANAGEMENT BIOLOGIST FOR HOSPITALIST T/C PLACED TO [facility] TO INFORM THERE IS NO READING FOR CXR READING, STATES IF NO READING BY 7:30 PM THEN PT WILL LEAVE TOMORROW
[2019-04-09 20:00] VITALS: BP 130/83
[2019-04-09 23:51] VITALS: BP 117/77
[2019-04-10 03:54] VITALS: BP 132/99
[2019-04-10] MEDS: ZOSYN 3.375GM+NS 50ML 50 ML IV SCH ×2 (06:14→13:47)
[2019-04-10] MEDS: INSULIN R PO SS1 SQ SCH ×2 (06:15→12:05)
[2019-04-10 07:30] VITALS: BP 110/78
[2019-04-10] MEDS: METFORMIN HCL 500 MG TABLET PO SCH (08:49)
[2019-04-10] MEDS: GLIPIZIDE 5 MG TABLET PO SCH (08:50)
[2019-04-10] MEDS: LISINOPRIL 20 MG TABLET PO SCH (08:51)
[2019-04-10] MEDS: GABAPENTIN 100 MG CAPSULE PO SCH (08:51)
[2019-04-10] MEDS: HYDROCHLOROTHIAZIDE 25 MG TABLET PO SCH (08:51)
--- NOTE | 2019-04-10 10:37 | NUR ---
ADVISED BY CHARGE NURSE THAT PT WOULD BE DISCHARGED TODAY
[2019-04-10 11:00] VITALS: BP 127/88
--- NOTE | 2019-04-10 15:03 | NUR ---
REPORT REPORT GIVEN TO JOSELIN KHALIL AT [facility] AT APPROX 1450 HOURS. TRANSPORTATION TO BE PROVIDED BY [facility].
--- NOTE | 2019-04-10 15:43 | NUR ---
PATIENT DISCHARGED PATIENT DISCHARGED, IV DISCONTINUED, CATHLON INTACT, BLEEDING CONTROLLED, PATIENT TOLERATED WITHOUT INCIDENT. [facility]SP[facility] ARRIVED FOR PATIENT.
== END 2019-04-10 16:00 | DRG 872 ==
LOC: EDH 04:07 → EDHIP 07:15 → 3AH 10:24
PROVIDERS: ADMIT Internal Medicine; ATTEND Internal Medicine
PROC: 02HV33Z Insertion of Infusion Device into Superior Vena Cava, Percutaneous Approach (ICD-10-PCS; principal; 2019-04-09)
DX: A41.51 Sepsis due to Escherichia coli [E. coli] (principal); N17.9 Acute kidney failure, unspecified; N39.0 Urinary tract infection, site not specified; Z16.12 Extended spectrum beta lactamase (ESBL) resistance; E86.1 Hypovolemia; E78.2 Mixed hyperlipidemia; E87.6 Hypokalemia; I10 Essential (primary) hypertension; E11.65 Type 2 diabetes mellitus with hyperglycemia; E83.42 Hypomagnesemia; Z87.442 Personal history of urinary calculi; Z83.3 Family history of diabetes mellitus; Z82.49 Family history of ischemic heart disease and other diseases of the circulatory system; Z88.6 Allergy status to analgesic agent; Z88.8 Allergy status to other drugs, medicaments and biological substances
CPT/HCPCS: 36415; 71045; 74176; 76705; 80048; 80053; 81001; 82948; 83036; 83690; 83735; 84100; 84145; 85025; 85610; 85651; 85730; 86140; 87040; 87077; 87186; 87804; 93005; 97039; C1894; G0378; J0360; J0696; J1815; J2405; J2543; J3475; J7030

== ENCOUNTER 2020-02-14 21:19 | Emergency (ER) | payer MEDICARE ==
[~2020-02-14 21:19] MED LIST changes: -AMOX125T PO; -LEVO500T2 PO
[2020-02-14 21:44] LABS: BASOPHILS % (AUTO) 0.2 % (0.0-5.0); EOSINOPHILS % (AUTO) 0.3 % (0.0-8.0); HEMATOCRIT 36.6 % (36-48); LYMPHOCYTES % (AUTO) 19.9 % (21.0-51.0); MEAN CORPUSCULAR HEMOGLOBIN 29.7 pg (27.0-33.0); MEAN CORPUSCULAR HGB CONC 34.2 g/dL (32.0-36.0); MEAN CORPUSCULAR VOLUME 86.9 fL (79-99); MONOCYTES % (AUTO) 6.4 % (3.0-13.0); PLATELET COUNT (AUTO) 199 K/uL (130-400); RED BLOOD CELL COUNT(AUTO) 4.21 MIL/uL (4.00-5.50); RED CELL DISTRIBUTION WIDTH 11.9 % (11.0-15.5); WHITE BLOOD COUNT (AUTO) 6.1 K/uL (4.8-10.8)
[2020-02-14] MEDS ORDERED: METOCLOPRAMIDE 10 MG/2 ML VIAL ONE (21:51)
[2020-02-14] MEDS ORDERED: DiphenhydrAMINE HCL 50 MG/ML VIAL ONE (21:51)
[2020-02-14] MEDS ORDERED: FAMOTIDINE/PF 20 MG/2 ML VIAL IV ONE (21:52)
[2020-02-14] MEDS ORDERED: ONDANSETRON HCL 4 MG/2 ML VIAL ONE (21:52)
[2020-02-14 21:53] LABS: CREATININE 0.6 mg/dL (0.5-1.5)
[2020-02-14 22:09] LABS: ALBUMIN 3.2 g/dL (3.5-5.0); BILIRUBIN,TOTAL 0.5 mg/dL (0.2-1.0); TOTAL PROTEIN, SERUM 7.9 g/dL (6.0-8.3)
[2020-02-14 22:20] LABS: B-TYPE NATRIURETIC PEPTIDE 83 pg/mL (0-100)
[2020-02-14 22:27] LABS: ABG BASE EXCESS -1.4 mmol/L (-2.0-3.0); ABG HCO3 23.4 mmol/L (21.0-28.0); ABG OXYGEN SATURATION 99.3 % (95.0-99.0); ABG PCO2 40 mmHg (32-45)
== END 2020-02-15 02:03 | disposition home or self-care (01) ==
LOC: EDH 21:19
DX: U07.1 COVID-19 (principal); R10.13 Epigastric pain; J12.89 Other viral pneumonia; E11.9 Type 2 diabetes mellitus without complications; I10 Essential (primary) hypertension; Z88.6 Allergy status to analgesic agent
CPT/HCPCS: 36415; 36600; 71045; 80053; 82550; 82803; 83690; 83880; 84484; 85025; 87426; 93005; 96374; 96375; 99285; J1200; J2405; J2765; J3490

== ENCOUNTER 2020-02-17 06:21 | Inpatient (IN) | payer MEDICARE ==
[~2020-02-17] VITALS: Ht 149.9 cm; Wt 53.2 kg
[2020-02-17] MEDS ORDERED: LORAZEPAM 2 MG/ML 1 ML VIAL ONE (06:34)
[2020-02-17 06:42] LABS: BASOPHILS % (AUTO) 0.3 % (0.0-5.0); EOSINOPHILS % (AUTO) 0.3 % (0.0-8.0); HEMATOCRIT 38.5 % (36-48); LYMPHOCYTES % (AUTO) 21.1 % (21.0-51.0); MEAN CORPUSCULAR HEMOGLOBIN 29.5 pg (27.0-33.0); MEAN CORPUSCULAR HGB CONC 35.6 g/dL (32.0-36.0); MEAN CORPUSCULAR VOLUME 82.8 fL (79-99); MONOCYTES % (AUTO) 9.1 % (3.0-13.0); NEUTROPHILS % (AUTO) 68.3 % (40.0-77.0); PLATELET COUNT (AUTO) 354 K/uL (130-400); RED BLOOD CELL COUNT(AUTO) 4.65 MIL/uL (4.00-5.50); RED CELL DISTRIBUTION WIDTH 11.5 % (11.0-15.5)
[2020-02-17 06:58] LABS: BILIRUBIN,TOTAL 0.5 mg/dL (0.2-1.0); CREATININE 0.6 mg/dL (0.5-1.5); POTASSIUM 3.5 mmol/L (3.5-5.1); TOTAL PROTEIN, SERUM 7.6 g/dL (6.0-8.3)
[2020-02-17] MEDS ORDERED: ENOXAPARIN SODIUM 60 MG/0.6 ML SQ ONE (07:22)
[2020-02-17] MEDS ORDERED: DEXAMETHASONE SOD PHOSPHATE 4 MG/ML 1ML VIAL ONE (07:23)
[2020-02-17] MEDS ORDERED: AZITHROMYCIN 500MG+NS 250ML 250 ML IV ONE (07:23)
[2020-02-17] MEDS: SODIUM CHLORIDE 0.9% 1000ML 1,000 ML IV SCH (09:43)
[2020-02-17] MEDS: DOXYCYCLINE 100MG+NS 250ML 250 ML IV SCH ×2 (09:45→22:30)
[2020-02-17] MEDS ORDERED: LACTULOSE 20 GM/30 ML UDCUP PO PRN (09:45)
[2020-02-17] MEDS: CEFTRIAXONE SODIUM 1 GM IV SCH (09:45)
[2020-02-17] MEDS ORDERED: ACETAMINOPHEN 325 MG TAB PO PRN (09:45)
[2020-02-17] MEDS ORDERED: GLUCAGON 1MG KIT 1 MG ML IM PRN (10:00)
[2020-02-17] MEDS ORDERED: DEXTROSE 50%-WATER 50 ML DISP.SYRIN IV PRN (10:00)
[2020-02-17] MEDS ORDERED: SODIUM CHLORIDE 0.9% 1000ML 1,000 ML IV ONE (10:10)
[2020-02-17] MEDS ORDERED: DOXYCYCLINE 100MG+NS 250ML 250 ML IV ONE (10:11)
[2020-02-17] MEDS ORDERED: CEFTRIAXONE SODIUM 1 GM ONE (10:11)
[2020-02-17] MEDS: INSULIN HUMULIN R 100 UNIT/ML 3ML SQ SCH ×3 (11:30→20:49)
[2020-02-17] MEDS: METFORMIN HCL 500 MG TABLET PO SCH ×2 (12:00→17:44)
[2020-02-17] MEDS ORDERED: INSULIN HUMULIN R 100 UNIT/ML 3ML ONE (12:20)
[2020-02-17 14:00] VITALS: BP 155/101
[2020-02-17 16:00] VITALS: BP 171/101
[2020-02-17] MEDS ORDERED: LISINOPRIL 20 MG TABLET ONE (18:52)
[2020-02-17] MEDS ORDERED: LISINOPRIL 10 MG TABLET PO SCH (19:00)
[2020-02-17 19:30] VITALS: BP 102/46
[2020-02-18] VITALS (7 sets, daily range): BP systolic 123–192; BP diastolic 80–115
[2020-02-18] MEDS: ONDANSETRON HCL 4 MG/2 ML VIAL IV PRN ×2 (00:41→06:06)
[2020-02-18] MEDS: SODIUM CHLORIDE 0.9% 1000ML 1,000 ML IV SCH ×4 (01:00→20:07)
[2020-02-18] MEDS: HYDRALAZINE HCL 20 MG/ML VIAL IV PRN ×2 (02:11→15:03)
[2020-02-18] MEDS: 1/2 NORMAL SALINE IV SCH ×2 (04:23→08:51)
[2020-02-18] MEDS: POTASSIUM CHLORIDE IV SCH ×2 (04:23→08:51)
--- NOTE | 2020-02-18 05:40 | NUR ---
PAIN Pt is having severe abdominal pain. Pt also vomiting and unable to swallow tylenol. Notified PLASTER TENDER guest relations receptionist for med orders. new orders rec'd.
[2020-02-18] MEDS ORDERED: HYDROMORPHONE HCL 0.5 MG/0.5 ML ML IVP SCH (05:45)
[2020-02-18] MEDS ORDERED: HYDROMORPHONE HCL 0.5 MG/0.5 ML ML ONE (05:45)
[2020-02-18 05:54] LABS: BASOPHILS % (AUTO) 0.1 % (0.0-5.0); HEMATOCRIT 38.7 % (36-48); LYMPHOCYTES % (AUTO) 24.3 % (21.0-51.0); MEAN CORPUSCULAR HGB CONC 35.1 g/dL (32.0-36.0); MEAN CORPUSCULAR VOLUME 85.4 fL (79-99); MONOCYTES % (AUTO) 9.9 % (3.0-13.0); NEUTROPHILS % (AUTO) 64.6 % (40.0-77.0); PLATELET COUNT (AUTO) 343 K/uL (130-400); RED BLOOD CELL COUNT(AUTO) 4.53 MIL/uL (4.00-5.50); RED CELL DISTRIBUTION WIDTH 11.8 % (11.0-15.5); WHITE BLOOD COUNT (AUTO) 7.2 K/uL (4.8-10.8)
[2020-02-18 06:24] LABS: ALANINE AMINOTRANSFERASE 21 U/L (12-78); ALBUMIN 2.8 g/dL (3.5-5.0); ASPARTATE AMINOTRANSFERASE 27 U/L (10-37); BILIRUBIN,TOTAL 0.4 mg/dL (0.2-1.0); CARBON DIOXIDE 24 mmol/L (21-32); CHLORIDE 102 mmol/L (101-111); CREATININE 0.6 mg/dL (0.5-1.5); GLOMERULAR FILTR. RATE CALC 108 mL/min (>60); GLUCOSE,RANDOM 159 mg/dL (70-105); SODIUM SERUM 139 mmol/L (136-145); TOTAL PROTEIN, SERUM 7.1 g/dL (6.0-8.3); UREA NITROGEN, BLOOD 17 mg/dL (7-18)
[2020-02-18 06:33] LABS: POTASSIUM 2.9 mmol/L (3.5-5.1)
[2020-02-18 07:13] LABS: AMYLASE 58 U/L (25-115); LIPASE 301 U/L (114-286)
[2020-02-18] MEDS: INSULIN HUMULIN R 100 UNIT/ML 3ML SQ SCH ×6 (07:30→20:17)
[2020-02-18] MEDS: METFORMIN HCL 500 MG TABLET PO SCH (08:00)
[2020-02-18] MEDS: LISINOPRIL 20 MG TABLET PO SCH (09:00)
[2020-02-18] MEDS ORDERED: DEXAMETHASONE 4 MG TAB PO SCH (09:00)
[2020-02-18] MEDS: ENOXAPARIN SODIUM 60 MG/0.6 ML SQ SCH (09:00)
[2020-02-18] MEDS ORDERED: ENOXAPARIN SODIUM 40 MG/0.4 ML SYRINGE SQ SCH (09:00)
[2020-02-18] MEDS: HYDROMORPHONE HCL 2 MG/ML VIAL IVP PRN ×2 (10:00→15:04)
[2020-02-18] MEDS ORDERED: IOHEXOL-350 75 ML VIAL IV ONE (10:16)
[2020-02-18] MEDS: CEFTRIAXONE SODIUM 1 GM IV SCH (11:06)
[2020-02-18] MEDS: DOXYCYCLINE 100MG+NS 250ML 250 ML IV SCH ×2 (11:06→20:13)
[2020-02-18] MEDS: METOCLOPRAMIDE 10 MG/2 ML VIAL IVP SCH ×3 (11:07→20:17)
[2020-02-18] MEDS ORDERED: GLIPIZIDE 5 MG TABLET PO SCH (17:00)
[2020-02-18] MEDS: INSULIN GLARGINE 100 UNITS/ML 10 ML VIAL SQ SCH (20:14)
[2020-02-19] MEDS: HYDROMORPHONE HCL 2 MG/ML VIAL IVP PRN (00:10)
[2020-02-19] MEDS: SODIUM CHLORIDE 0.9% 1000ML 1,000 ML IV SCH ×4 (02:47→20:32)
[2020-02-19] MEDS: 1/2 NORMAL SALINE IV SCH ×3 (05:03→20:19)
[2020-02-19] MEDS: POTASSIUM CHLORIDE IV SCH ×3 (05:03→20:19)
[2020-02-19 05:09] LABS: BASOPHILS % (AUTO) 0.3 % (0.0-5.0); EOSINOPHILS % (AUTO) 0.4 % (0.0-8.0); HEMATOCRIT 37.8 % (36-48); LYMPHOCYTES % (AUTO) 29.3 % (21.0-51.0); MEAN CORPUSCULAR HEMOGLOBIN 29.5 pg (27.0-33.0); MEAN CORPUSCULAR HGB CONC 34.1 g/dL (32.0-36.0); MEAN CORPUSCULAR VOLUME 86.5 fL (79-99); MONOCYTES % (AUTO) 8.1 % (3.0-13.0); NEUTROPHILS % (AUTO) 60.9 % (40.0-77.0); PLATELET COUNT (AUTO) 340 K/uL (130-400); RED BLOOD CELL COUNT(AUTO) 4.37 MIL/uL (4.00-5.50); RED CELL DISTRIBUTION WIDTH 11.7 % (11.0-15.5); WHITE BLOOD COUNT (AUTO) 6.8 K/uL (4.8-10.8)
[2020-02-19 05:29] LABS: ALANINE AMINOTRANSFERASE 19 U/L (12-78); ALBUMIN 2.7 g/dL (3.5-5.0); ASPARTATE AMINOTRANSFERASE 21 U/L (10-37); BILIRUBIN,TOTAL 0.4 mg/dL (0.2-1.0); CARBON DIOXIDE 26 mmol/L (21-32); CHLORIDE 101 mmol/L (101-111); CREATININE 0.5 mg/dL (0.5-1.5); GLOMERULAR FILTR. RATE CALC 134 mL/min (>60); GLUCOSE,RANDOM 115 mg/dL (70-105); SODIUM SERUM 139 mmol/L (136-145); TOTAL PROTEIN, SERUM 6.8 g/dL (6.0-8.3); UREA NITROGEN, BLOOD 14 mg/dL (7-18)
[2020-02-19 05:35] LABS: POTASSIUM 2.8 mmol/L (3.5-5.1)
[2020-02-19] MEDS: INSULIN HUMULIN R 100 UNIT/ML 3ML SQ SCH ×7 (05:45→20:18)
[2020-02-19 06:10] VITALS: BP 149/88
[2020-02-19 08:30] VITALS: BP 128/87
[2020-02-19] MEDS: LISINOPRIL 20 MG TABLET PO SCH (08:59)
[2020-02-19] MEDS: METOCLOPRAMIDE 10 MG/2 ML VIAL IVP SCH (08:59)
[2020-02-19] MEDS: DEXAMETHASONE SOD PHOSPHATE 4 MG/ML 1ML VIAL IVP SCH (08:59)
[2020-02-19] MEDS: ENOXAPARIN SODIUM 60 MG/0.6 ML SQ SCH (09:00)
--- NOTE | 2020-02-19 09:45 | NUR ---
nausea and abdominal pain Pt still having the epigastric abdominal pain with nausea. Pt also unable to swallow PO medication, unable to tolerate any Food or water. Dr Decker Notified orders given to d/c her reglan and start phenergan 20mg q6hrs as needed. Dr will call family and update them on patient status
[2020-02-19] MEDS: CEFTRIAXONE SODIUM 1 GM IV SCH (10:08)
[2020-02-19] MEDS: DOXYCYCLINE 100MG+NS 250ML 250 ML IV SCH ×2 (10:08→20:46)
[2020-02-19] MEDS: HYDROMORPHONE HCL 0.5 MG/0.5 ML ML IVP PRN ×2 (10:09→20:20)
[2020-02-19 11:53] VITALS: BP 155/90
[2020-02-19] MEDS ORDERED: POTASSIUM CHLORIDE 20 MEQ ERTAB PO SCH ×2 (13:30→15:30)
[2020-02-19] MEDS: PROMETHAZINE HCL 25 MG/ML 1ML AMPULE IM PRN (14:12)
[2020-02-19] MEDS ORDERED: MAGNESIUM 2GM PREMIX 50ML 50 ML IV PRN (15:15)
[2020-02-19] MEDS ORDERED: MAGNESIUM 2GM PREMIX 50ML 50 ML IV ONE (15:24)
--- NOTE | 2020-02-19 16:15 | NUR ---
DC PLAN VISITED WITH PATIENT. PATIENT LIVES WITH DAUGHTER. INDEPENDENT ABLE TO PERFORM ADL'S. PATIENT HAS NO SERVICES. USES A WALKER. PLAN TO RETURN HOME. Addendum: 02/19/20 at 1616 by PAULA POPE RN CM Amended: Links added.
[2020-02-19 17:30] VITALS: BP 156/105
[2020-02-19] MEDS: INSULIN GLARGINE 100 UNITS/ML 10 ML VIAL SQ SCH (20:18)
[2020-02-19 20:36] VITALS: BP 179/113
[2020-02-19] MEDS: HYDRALAZINE HCL 20 MG/ML VIAL IV PRN (22:11)
[2020-02-20] VITALS (7 sets, daily range): BP systolic 104–174; BP diastolic 66–116
[2020-02-20] MEDS: SODIUM CHLORIDE 0.9% 1000ML 1,000 ML IV SCH ×3 (03:41→18:47)
[2020-02-20] MEDS: INSULIN HUMULIN R 100 UNIT/ML 3ML SQ SCH ×7 (05:07→20:56)
[2020-02-20] MEDS: HYDROMORPHONE HCL 0.5 MG/0.5 ML ML IVP PRN ×2 (05:21→09:50)
--- NOTE | 2020-02-20 05:33 | NUR ---
received report from am nurse, assumed care, pt has abdominal pain , timed medication given, see emar, pain medication given see emar, 24 cc done, shift assessment done, safety maintained, noted pt had black tarry stool, contacted assembler movement waiting for callback and orders.
[2020-02-20 06:12] LABS: BASOPHILS % (AUTO) 0.2 % (0.0-5.0); EOSINOPHILS % (AUTO) 0.1 % (0.0-8.0); HEMATOCRIT 37.2 % (36-48); LYMPHOCYTES % (AUTO) 20.2 % (21.0-51.0); MEAN CORPUSCULAR HEMOGLOBIN 29.5 pg (27.0-33.0); MEAN CORPUSCULAR HGB CONC 34.1 g/dL (32.0-36.0); MEAN CORPUSCULAR VOLUME 86.3 fL (79-99); MONOCYTES % (AUTO) 7.3 % (3.0-13.0); NEUTROPHILS % (AUTO) 70.9 % (40.0-77.0); PLATELET COUNT (AUTO) 381 K/uL (130-400); RED BLOOD CELL COUNT(AUTO) 4.31 MIL/uL (4.00-5.50); RED CELL DISTRIBUTION WIDTH 11.8 % (11.0-15.5); WHITE BLOOD COUNT (AUTO) 8.2 K/uL (4.8-10.8)
[2020-02-20 06:29] LABS: ALANINE AMINOTRANSFERASE 14 U/L (12-78); ALBUMIN 2.6 g/dL (3.5-5.0); ASPARTATE AMINOTRANSFERASE 15 U/L (10-37); BILIRUBIN,TOTAL 0.5 mg/dL (0.2-1.0); CARBON DIOXIDE 21 mmol/L (21-32); CHLORIDE 100 mmol/L (101-111); CREATININE 0.5 mg/dL (0.5-1.5); GLOMERULAR FILTR. RATE CALC 134 mL/min (>60); GLUCOSE,RANDOM 167 mg/dL (70-105); POTASSIUM 3.4 mmol/L (3.5-5.1); SODIUM SERUM 134 mmol/L (136-145); TOTAL PROTEIN, SERUM 6.6 g/dL (6.0-8.3); UREA NITROGEN, BLOOD 11 mg/dL (7-18)
[2020-02-20] MEDS: CEFTRIAXONE SODIUM 1 GM IV SCH (08:12)
[2020-02-20] MEDS: DEXAMETHASONE SOD PHOSPHATE 4 MG/ML 1ML VIAL IVP SCH (08:13)
[2020-02-20] MEDS: LISINOPRIL 20 MG TABLET PO SCH (09:09)
[2020-02-20] MEDS: DOXYCYCLINE 100MG+NS 250ML 250 ML IV SCH ×2 (09:50→22:28)
[2020-02-20] MEDS ORDERED: TRAMADOL HCL 50 MG TABLET PO PRN (12:45)
[2020-02-20] MEDS: ENOXAPARIN SODIUM 60 MG/0.6 ML SQ SCH (12:59)
[2020-02-20] MEDS: POTASSIUM CHLORIDE IV SCH ×2 (13:00→22:28)
[2020-02-20] MEDS: 1/2 NORMAL SALINE IV SCH ×2 (13:00→22:28)
--- NOTE | 2020-02-20 16:20 | NUR ---
Home Medication Talked to daughter Connie daughter stated that she does not have access or know the name of her mothers medication all she knows is that she takes insulin and some blood pressure medication which she cannot recall the name or the dose. daughter updated on patient condition,daughter requesting to talk to the provider. Will communicate to the Hospitalist on duty today.
--- NOTE | 2020-02-20 16:24 | NUR ---
Pain Management Consult Talked to Dr Benjamin. Dr Benjamin stated that he will see the patient the 1st thing in the morning tomorrow.
[2020-02-20] MEDS: PROMETHAZINE HCL 25 MG/ML 1ML AMPULE IM PRN (16:59)
[2020-02-20] MEDS: TRAMADOL HCL 50 MG TABLET PO PRN (17:00)
--- NOTE | 2020-02-20 17:34 | NUR ---
Family Update Dr Decker Talked to daughter Connie on the Phone.Updated on on care and treatment plan.
[2020-02-20] MEDS ORDERED: PREGABALIN 75 MG CAPSULE PO SCH (21:00)
[2020-02-20] MEDS: PREGABALIN 25 MG CAP PO SCH (22:28)
[2020-02-20] MEDS: METOCLOPRAMIDE 10 MG/2 ML VIAL IVP SCH (22:28)
[2020-02-20] MEDS: SERTRALINE HCL 50 MG TABLET PO SCH (22:28)
[2020-02-20] MEDS: INSULIN GLARGINE 100 UNITS/ML 10 ML VIAL SQ SCH (22:33)
[2020-02-20] MEDS: HYDRALAZINE HCL 20 MG/ML VIAL IV PRN (23:58)
[2020-02-21] MEDS ORDERED: ONDANSETRON HCL 4 MG/2 ML VIAL IVP PRN (01:30)
[2020-02-21] MEDS ORDERED: ONDANSETRON HCL 4 MG/2 ML VIAL ONE (01:34)
[2020-02-21] MEDS ORDERED: HYDROMORPHONE 1 MG/1 ML AMP ONE (02:26)
[2020-02-21] MEDS ORDERED: HYDROMORPHONE 1 MG/1 ML AMP IVP ONE (02:30)
[2020-02-21] MEDS: PANTOPRAZOLE 40 MG/VIAL IVP SCH ×2 (02:30→08:57)
[2020-02-21 03:00] VITALS: BP 155/99
[2020-02-21 03:44] LABS: BASOPHILS % (AUTO) 0.1 % (0.0-5.0); EOSINOPHILS % (AUTO) 0.2 % (0.0-8.0); HEMATOCRIT 34.1 % (36-48); LYMPHOCYTES % (AUTO) 17.3 % (21.0-51.0); MEAN CORPUSCULAR HEMOGLOBIN 29.4 pg (27.0-33.0); MEAN CORPUSCULAR HGB CONC 34.3 g/dL (32.0-36.0); MEAN CORPUSCULAR VOLUME 85.7 fL (79-99); MONOCYTES % (AUTO) 6.9 % (3.0-13.0); NEUTROPHILS % (AUTO) 73.9 % (40.0-77.0); PLATELET COUNT (AUTO) 325 K/uL (130-400); RED BLOOD CELL COUNT(AUTO) 3.98 MIL/uL (4.00-5.50); RED CELL DISTRIBUTION WIDTH 11.4 % (11.0-15.5); WHITE BLOOD COUNT (AUTO) 8.3 K/uL (4.8-10.8)
[2020-02-21 04:14] LABS: CREATINE KINASE, TOTAL 19 U/L (21-232); MYOGLOBIN 22 ng/mL (10-92); TROPONIN I < 0.04 ng/mL (0.00-0.06)
[2020-02-21 04:44] LABS: CREATININE 0.4 mg/dL (0.5-1.5); MAGNESIUM 1.4 mg/dL (1.80-2.40); POTASSIUM 3.2 mmol/L (3.5-5.1)
[2020-02-21] MEDS: INSULIN HUMULIN R 100 UNIT/ML 3ML SQ SCH ×7 (06:40→21:00)
[2020-02-21] MEDS: METOCLOPRAMIDE 10 MG/2 ML VIAL IVP SCH ×4 (07:37→21:22)
[2020-02-21] MEDS: POTASSIUM CHLORIDE IV SCH ×3 (07:37→21:22)
[2020-02-21] MEDS: 1/2 NORMAL SALINE IV SCH ×3 (07:37→21:22)
[2020-02-21 07:54] VITALS: BP 141/99
[2020-02-21] MEDS: DEXAMETHASONE SOD PHOSPHATE 4 MG/ML 1ML VIAL IVP SCH (08:56)
[2020-02-21] MEDS: LISINOPRIL 20 MG TABLET PO SCH (08:59)
[2020-02-21] MEDS: ENOXAPARIN SODIUM 60 MG/0.6 ML SQ SCH (09:00)
[2020-02-21] MEDS: DOXYCYCLINE 100MG+NS 250ML 250 ML IV SCH ×2 (09:04→21:22)
[2020-02-21] MEDS: CEFTRIAXONE SODIUM 1 GM IV SCH (09:04)
[2020-02-21] MEDS: PREGABALIN 25 MG CAP PO SCH ×3 (09:34→21:22)
[2020-02-21] MEDS: TRAMADOL HCL 50 MG TABLET PO PRN (09:36)
[2020-02-21 12:35] VITALS: BP 115/78
--- NOTE | 2020-02-21 13:41 | NUR ---
DC PLAN SPOKE TO DR. WAN SAID THAT PATIENT STILL HAVING ISSUES WITH PAIN MANAGEMENT. PENDING DR. GERMAN TO SEE PATIENT. TRYING TO CHANGE MEDICATIONS. Addendum: 02/21/20 at 1342 by PAULA POPE RN CM Amended: Links added.
[2020-02-21] MEDS ORDERED: SODIUM CHLORIDE 0.9% 1000ML 1,000 ML IV ONE (13:52)
[2020-02-21] MEDS ORDERED: SODIUM CHLORIDE 0.9% 250 ML IV ONE (16:22)
[2020-02-21 16:57] VITALS: BP 135/89
[2020-02-21 19:00] VITALS: BP 133/92
[2020-02-21] MEDS: SERTRALINE HCL 50 MG TABLET PO SCH (21:22)
[2020-02-21] MEDS: INSULIN GLARGINE 100 UNITS/ML 10 ML VIAL SQ SCH (21:26)
[2020-02-21 23:00] VITALS: BP 143/89
[2020-02-21] MEDS ORDERED: KETOROLAC TROMETHAMINE 30MG/ML IV PRN ×2 (23:45)
[2020-02-21] MEDS: POTASSIUM CHLORIDE 20 MEQ ERTAB PO SCH (23:45)
[2020-02-21] MEDS ORDERED: MAGNESIUM 2GM PREMIX 50ML 50 ML IV SCH (23:45)
[2020-02-22 03:00] VITALS: BP 146/92
[2020-02-22 05:54] LABS: BASOPHILS % (AUTO) 0.1 % (0.0-5.0); EOSINOPHILS % (AUTO) 0.3 % (0.0-8.0); HEMATOCRIT 36.2 % (36-48); LYMPHOCYTES % (AUTO) 23.4 % (21.0-51.0); MEAN CORPUSCULAR HEMOGLOBIN 29.7 pg (27.0-33.0); MEAN CORPUSCULAR HGB CONC 35.4 g/dL (32.0-36.0); NEUTROPHILS % (AUTO) 67.9 % (40.0-77.0); PLATELET COUNT (AUTO) 358 K/uL (130-400); RED BLOOD CELL COUNT(AUTO) 4.31 MIL/uL (4.00-5.50); RED CELL DISTRIBUTION WIDTH 11.5 % (11.0-15.5); WHITE BLOOD COUNT (AUTO) 9.2 K/uL (4.8-10.8)
[2020-02-22] MEDS: TRAMADOL HCL 50 MG TABLET PO PRN (06:00)
[2020-02-22 06:21] LABS: ALBUMIN 2.7 g/dL (3.5-5.0); BILIRUBIN,TOTAL 0.6 mg/dL (0.2-1.0); CREATININE 0.5 mg/dL (0.5-1.5); CRP QUANTITATIVE 10.4 mg/L (0.00-9.0); MAGNESIUM 1.8 mg/dL (1.80-2.40); PHOSPHORUS 1.3 mg/dL (2.5-4.9); POTASSIUM 3.5 mmol/L (3.5-5.1); TOTAL PROTEIN, SERUM 6.6 g/dL (6.0-8.3)
[2020-02-22 06:52] LABS: ERYTHROCYTE SEDIMENTATION RATE 25 MM/HR (0-30)
[2020-02-22] MEDS: METOCLOPRAMIDE 10 MG/2 ML VIAL IVP SCH ×4 (06:58→20:20)
[2020-02-22] MEDS: INSULIN HUMULIN R 100 UNIT/ML 3ML SQ SCH ×7 (07:01→20:21)
[2020-02-22 08:52] VITALS: BP 137/74
[2020-02-22] MEDS: PANTOPRAZOLE 40 MG/VIAL IVP SCH (09:36)
[2020-02-22] MEDS: ENOXAPARIN SODIUM 40 MG/0.4 ML SYRINGE SQ SCH (09:37)
[2020-02-22] MEDS: DEXAMETHASONE SOD PHOSPHATE 4 MG/ML 1ML VIAL IVP SCH (09:37)
[2020-02-22] MEDS: CEFTRIAXONE SODIUM 1 GM IV SCH (09:38)
[2020-02-22] MEDS: PREGABALIN 25 MG CAP PO SCH ×3 (09:38→20:20)
[2020-02-22] MEDS: LISINOPRIL 20 MG TABLET PO SCH (09:38)
[2020-02-22] MEDS: DOXYCYCLINE 100MG+NS 250ML 250 ML IV SCH ×2 (09:38→20:19)
--- NOTE | 2020-02-22 12:07 | NUR ---
PRIMARY PT WILL FOLLOW UP FRIDAY 02/23 Addendum: 02/22/20 at 1207 by PATRICIA JIMENEZ, PT PT Amended: Links added.
[2020-02-22] MEDS: 1/2 NORMAL SALINE IV SCH (12:19)
[2020-02-22] MEDS: POTASSIUM CHLORIDE IV SCH (12:19)
[2020-02-22 13:40] VITALS: BP 124/84
[2020-02-22 13:42] VITALS: BP 124/84
[2020-02-22 13:43] VITALS: BP 119/86
[2020-02-22 20:04] VITALS: BP 105/67
[2020-02-22] MEDS: SERTRALINE HCL 50 MG TABLET PO SCH (20:20)
[2020-02-22] MEDS: INSULIN GLARGINE 100 UNITS/ML 10 ML VIAL SQ SCH (20:22)
[2020-02-22] MEDS: POTASSIUM CHLORIDE 20 MEQ ERTAB PO SCH (23:45)
[2020-02-23] VITALS (7 sets, daily range): BP systolic 106–150; BP diastolic 72–101
[2020-02-23] MEDS ORDERED: POTASSIUM CHLORIDE 20MEQ/100ML 100 ML IV PRN (01:15)
[2020-02-23] MEDS ORDERED: LIDOCAINE HCL-MPF 1% 2ML VIAL IJ PRN (01:15)
[2020-02-23] MEDS ORDERED: POTASSIUM CHLORIDE 20 MEQ ERTAB PO PRN (01:15)
[2020-02-23] MEDS ORDERED: POTASSIUM CHLORIDE 10% ELIXIR 20 MEQ/15 ML UDCUP PO PRN (01:15)
[2020-02-23 05:09] LABS: HEMATOCRIT 34.2 % (36-48); MEAN CORPUSCULAR HEMOGLOBIN 29.5 pg (27.0-33.0); MEAN CORPUSCULAR HGB CONC 33.9 g/dL (32.0-36.0); NUCLEATED RED BLOOD CELLS 0.3 % (0.0-0.19); RED BLOOD CELL COUNT(AUTO) 3.93 MIL/uL (4.00-5.50); RED CELL DISTRIBUTION WIDTH 11.7 % (11.0-15.5); WHITE BLOOD COUNT (AUTO) 6.9 K/uL (4.8-10.8)
[2020-02-23 05:26] LABS: ALBUMIN 2.4 g/dL (3.5-5.0); BILIRUBIN,TOTAL 0.5 mg/dL (0.2-1.0); CREATININE 0.5 mg/dL (0.5-1.5); MAGNESIUM 1.9 mg/dL (1.80-2.40); POTASSIUM 3.6 mmol/L (3.5-5.1); TOTAL PROTEIN, SERUM 5.8 g/dL (6.0-8.3)
[2020-02-23] MEDS: INSULIN HUMULIN R 100 UNIT/ML 3ML SQ SCH ×7 (06:04→20:16)
[2020-02-23] MEDS: METOCLOPRAMIDE 10 MG/2 ML VIAL IVP SCH ×4 (06:13→20:15)
--- NOTE | 2020-02-23 07:28 | NUR ---
Unstageable wound noted to right buttocks with no drainage noted at this time. patient states no pain to site at this time. will continue to assess site
[2020-02-23] MEDS: PANTOPRAZOLE 40 MG/VIAL IVP SCH (08:32)
[2020-02-23] MEDS: LISINOPRIL 20 MG TABLET PO SCH (08:33)
[2020-02-23] MEDS: PREGABALIN 25 MG CAP PO SCH ×3 (08:33→20:15)
[2020-02-23] MEDS: DOXYCYCLINE 100MG+NS 250ML 250 ML IV SCH ×2 (08:34→20:21)
[2020-02-23] MEDS: ENOXAPARIN SODIUM 40 MG/0.4 ML SYRINGE SQ SCH (08:34)
[2020-02-23] MEDS: CEFTRIAXONE SODIUM 1 GM IV SCH (09:50)
[2020-02-23] MEDS: DEXAMETHASONE SOD PHOSPHATE 4 MG/ML 1ML VIAL IVP SCH (09:51)
[2020-02-23] MEDS: 1/2 NORMAL SALINE IV SCH ×2 (10:03→12:56)
[2020-02-23] MEDS: POTASSIUM CHLORIDE IV SCH ×2 (10:03→12:56)
--- NOTE | 2020-02-23 11:16 | NUR ---
blood glucose 108.
--- NOTE | 2020-02-23 12:15 | NUR ---
PRIMARY PT WILL FOLLOW UP FRIDAY 02/23 Addendum: 02/23/20 at 1215 by PATRICIA JIMENEZ, PT PT Amended: Links added.
[2020-02-23] MEDS: SERTRALINE HCL 50 MG TABLET PO SCH (20:15)
[2020-02-23] MEDS: INSULIN GLARGINE 100 UNITS/ML 10 ML VIAL SQ SCH (20:19)
[2020-02-23] MEDS ORDERED: TRAMADOL /APAP 37.5MG/325MG TAB ONE (22:07)
[2020-02-23] MEDS ORDERED: TRAMADOL /APAP 37.5MG/325MG TAB PO PRN (22:15)
--- NOTE | 2020-02-23 22:30 | NUR ---
DONAHUE WAS ID/C
--- NOTE | 2020-02-23 22:35 | NUR ---
DR. BECK AWARE PATIENT HAS LICE PATIENT STATES HER NIECE HAD LICE AND SHE BELIEVE SHE AQUIRED IT FROM HER DRBelinda BECK STATED OK FOR FAMILY TO BRING LICE NIT COMB AND CPOE ORDERS FOR LICE SHAMPOO
--- NOTE | 2020-02-23 22:40 | NUR ---
PT'S DAUGHTER CALLED , UPDATED ON PT'S STATUS PATIENT SATURATING WELL ON ROOM AIR DONAHUE CATHER OUT, PENDING TO VOID UPDATED ON PLAN OF CARE AND PATIENT'S CURRENT DIET AND MEDICATIONS AWARE THAT PATIENT HAS LICE, AND SHE STATES SHE BELIEVES SHE GOT IT FROM HER NIECE, DAUGHTER STATES SHE AGREES WITH HER. AWARE TO BRING NIT COMB HAIR TO COMB OUT LICE EGGS.
[2020-02-23] MEDS: POTASSIUM CHLORIDE 20 MEQ ERTAB PO SCH (23:45)
[2020-02-24 03:41] VITALS: BP 141/98
[2020-02-24 04:37] LABS: ALBUMIN 2.4 g/dL (3.5-5.0); BILIRUBIN,TOTAL 0.4 mg/dL (0.2-1.0); CREATININE 0.5 mg/dL (0.5-1.5); POTASSIUM 3.6 mmol/L (3.5-5.1); TOTAL PROTEIN, SERUM 5.7 g/dL (6.0-8.3)
--- NOTE | 2020-02-24 05:00 | NUR ---
PT UNABLE TO VOID ON HER OWN BLADDER SCAN SHOWS > 764 CC VOLUME STRAIGHT CATH PT ORDERED BY PROVIDER PT OUTPUT OF 840 PT PENDING TO VOID
[2020-02-24 05:30] LABS: APPEARANCE,URINE Clear (CLEAR); BILIRUBIN,URINE Negative (NEGATIVE); COLOR,URINE Yellow (YELLOW); GLUCOSE, URINE (UA) Negative (NEGATIVE); KETONES,URINE Negative (NEGATIVE); LEUKOCYTE ESTERASE ,URINE Negative (NEGATIVE); NITRATE,URINE Negative (NEGATIVE); OCCULT BLOOD,URINE Negative (NEGATIVE); PROTEIN,URINE Negative (NEGATIVE); UROBILINOGEN,URINE 0.2 mg/dL (0.2-1.0)
[2020-02-24] MEDS: METOCLOPRAMIDE 10 MG/2 ML VIAL IVP SCH ×4 (05:30→21:23)
[2020-02-24] MEDS: INSULIN HUMULIN R 100 UNIT/ML 3ML SQ SCH ×7 (05:31→21:30)
[2020-02-24 07:00] VITALS: BP 129/87
[2020-02-24] MEDS: ENOXAPARIN SODIUM 40 MG/0.4 ML SYRINGE SQ SCH (08:09)
[2020-02-24] MEDS: LISINOPRIL 20 MG TABLET PO SCH (08:09)
[2020-02-24] MEDS: PREGABALIN 25 MG CAP PO SCH ×3 (08:10→21:24)
[2020-02-24] MEDS: DEXAMETHASONE SOD PHOSPHATE 4 MG/ML 1ML VIAL IVP SCH (08:10)
[2020-02-24] MEDS: PERMETHRIN LOTION 1% 59ML BOTTLE TP SCH ×2 (08:12→21:35)
[2020-02-24] MEDS: 1/2 NORMAL SALINE IV SCH (08:41)
[2020-02-24] MEDS: CEFTRIAXONE SODIUM 1 GM IV SCH (08:41)
[2020-02-24] MEDS: POTASSIUM CHLORIDE IV SCH (08:41)
[2020-02-24] MEDS: DOXYCYCLINE 100MG+NS 250ML 250 ML IV SCH ×2 (08:42→21:35)
[2020-02-24] MEDS: PANTOPRAZOLE 40 MG/VIAL IVP SCH (09:05)
[2020-02-24 11:00] VITALS: BP 124/81
[2020-02-24 15:00] VITALS: BP 100/63
[2020-02-24] MEDS ORDERED: SERT50TA PO (17:24)
[2020-02-24] MEDS ORDERED: APIX2.5T PO (17:24)
[2020-02-24] MEDS ORDERED: DEXA6TAB7 PO (17:24)
--- NOTE | 2020-02-24 17:47 | NUR ---
Dr. Decker in regards to bg of 325. patient medicated as ordered. will continue to monitor as needed.
--- NOTE | 2020-02-24 18:10 | NUR ---
Dr. Decker made rounds and placed d/c orders for patient. Patient's daughter called and request a Covid negative testing before patient is released to Caregiver. Informed Dr. Decker and will report information to oncoming nurse. In am case management social worker will be notified
[2020-02-24 21:23] VITALS: BP 122/88
[2020-02-24] MEDS: SERTRALINE HCL 50 MG TABLET PO SCH (21:24)
[2020-02-24] MEDS: INSULIN GLARGINE 100 UNITS/ML 10 ML VIAL SQ SCH (21:33)
[2020-02-24] MEDS: POTASSIUM CHLORIDE 20 MEQ ERTAB PO SCH (23:33)
[2020-02-25 00:59] VITALS: BP 121/74
[2020-02-25 06:06] VITALS: BP 131/84
[2020-02-25] MEDS: METOCLOPRAMIDE 10 MG/2 ML VIAL IVP SCH ×2 (06:21→11:41)
[2020-02-25] MEDS: INSULIN HUMULIN R 100 UNIT/ML 3ML SQ SCH ×5 (06:29→11:30)
[2020-02-25 08:00] VITALS: BP 120/87
[2020-02-25] MEDS: LISINOPRIL 20 MG TABLET PO SCH (09:00)
[2020-02-25] MEDS: ENOXAPARIN SODIUM 40 MG/0.4 ML SYRINGE SQ SCH (09:00)
[2020-02-25] MEDS: PREGABALIN 25 MG CAP PO SCH ×2 (09:00→14:37)
[2020-02-25] MEDS: DEXAMETHASONE SOD PHOSPHATE 4 MG/ML 1ML VIAL IVP SCH (09:00)
[2020-02-25] MEDS: PANTOPRAZOLE 40 MG/VIAL IVP SCH (09:00)
[2020-02-25] MEDS: DOXYCYCLINE 100MG+NS 250ML 250 ML IV SCH (11:41)
[2020-02-25] MEDS: CEFTRIAXONE SODIUM 1 GM IV SCH (11:41)
[2020-02-25] MEDS: 1/2 NORMAL SALINE IV SCH (12:33)
[2020-02-25] MEDS: POTASSIUM CHLORIDE IV SCH (12:33)
[2020-02-25 12:34] VITALS: BP 127/85
--- NOTE | 2020-02-25 13:43 | NUR ---
KAT TREADWELL VISITED WITH PATIENT. DR. WAN VISITED WITH PATIENT. EXPLAINED THAT DAUGHTER DID NOT WANT TO TAKE HER HOME DUE TO COVID. ASKED IF OKAY WITH GOING TO [facility]. VERBALIZED UNDERSTANDING AND OKAY TO TRANSFER. LUIS COSIGNED WITH DR. WAN. PATIENT IN COVID UNIT COULD NOT ENTER ROOM. PACKET SENT TO [facility]. DR. SEE ACCEPTED. MOT AND EMS SET UP AND SIGNED IN CHART. Addendum: 02/25/20 at 1346 by PAULA POPE RN CM Amended: Links added.
== END 2020-02-25 15:25 | disposition disaster alternative care site (69) | DRG 177 ==
LOC: EDH 06:21 → EDHIP 09:43 → 2DH 14:12
PROVIDERS: ADMIT Hospitalist; ATTEND Hospitalist
DX: U07.1 COVID-19 (principal); J12.89 Other viral pneumonia; J96.01 Acute respiratory failure with hypoxia; J44.0 Chronic obstructive pulmonary disease with (acute) lower respiratory infection; I10 Essential (primary) hypertension; E11.9 Type 2 diabetes mellitus without complications; R33.9 Retention of urine, unspecified; E11.65 Type 2 diabetes mellitus with hyperglycemia; E78.5 Hyperlipidemia, unspecified; E83.42 Hypomagnesemia; E87.6 Hypokalemia; F32.9 Major depressive disorder, single episode, unspecified; F41.9 Anxiety disorder, unspecified; Z82.49 Family history of ischemic heart disease and other diseases of the circulatory system; Z83.3 Family history of diabetes mellitus
CPT/HCPCS: 36415; 36600; 71045; 74176; 74177; 80048; 80053; 81003; 82150; 82550; 82728; 82803; 82948; 83605; 83690; 83735; 83874; 83880; 84100; 84132; 84145; 84484; 85025; 85027; 85378; 85651; 86140; 86677; 87426; 93005; 96374; 96375; 99291; C9113; G0378; J0360; J0456; J0696; J1100; J1170; J1200; J1650; J1815; J2060; J2405; J2550; J2765; J3475; J3480; J3490; J7030; J7050; Q9967

== ENCOUNTER 2020-06-06 11:30 | Emergency (ER) | payer MEDICARE ==
[~2020-06-06 11:30] MED LIST changes: +APIX2.5T PO; +DEXA6TAB7 PO; -LISI-613 PO; +LISI20TA24 PO; +SERT50TA PO
[2020-06-06] MEDS ORDERED: CLINDAMYCIN IVPB 600MG/50ML 50 ML IV ONE (13:01)
[2020-06-06] MEDS ORDERED: ZOSYN 3.375GM+NS 50ML 50 ML IV ONE (13:01)
[2020-06-06] MEDS ORDERED: ACETAMINOPHEN WITH CODEINE 1 TAB TAB ONE (13:01)
[2020-06-06] MEDS ORDERED: INSULIN HUMULIN R 100 UNIT/ML 3ML ONE ×2 (13:02→15:22)
[2020-06-06 13:25] LABS: BASOPHILS % (AUTO) 0.5 % (0.0-5.0); EOSINOPHILS % (AUTO) 3.2 % (0.0-8.0); HEMATOCRIT 39.2 % (36-48); LYMPHOCYTES % (AUTO) 22.8 % (21.0-51.0); MEAN CORPUSCULAR HEMOGLOBIN 29.5 pg (27.0-33.0); MEAN CORPUSCULAR HGB CONC 33.7 g/dL (32.0-36.0); MEAN CORPUSCULAR VOLUME 87.7 fL (79-99); MONOCYTES % (AUTO) 5.3 % (3.0-13.0); NEUTROPHILS % (AUTO) 67.8 % (40.0-77.0); PLATELET COUNT (AUTO) 292 K/uL (130-400); RED BLOOD CELL COUNT(AUTO) 4.47 MIL/uL (4.00-5.50); RED CELL DISTRIBUTION WIDTH 11.8 % (11.0-15.5); WHITE BLOOD COUNT (AUTO) 7.7 K/uL (4.8-10.8)
[2020-06-06 13:45] LABS: CREATININE 0.7 mg/dL (0.5-1.5); POTASSIUM 4.4 mmol/L (3.5-5.1)
[2020-06-06 13:47] LABS: ALBUMIN 3.8 g/dL (3.5-5.0); BILIRUBIN,TOTAL 0.3 mg/dL (0.2-1.0); CRP QUANTITATIVE 15.3 mg/L (0.00-9.0); TOTAL PROTEIN, SERUM 8.4 g/dL (6.0-8.3)
[2020-12-27] MEDS ORDERED: CLIN-141 PO (22:33)
== END 2020-06-06 16:42 | disposition home or self-care (01) ==
LOC: EDH 11:30
DX: L02.811 Cutaneous abscess of head [any part, except face] (principal); L02.11 Cutaneous abscess of neck; E11.65 Type 2 diabetes mellitus with hyperglycemia; I10 Essential (primary) hypertension; Z88.6 Allergy status to analgesic agent
CPT/HCPCS: 36415; 80053; 82948 ×4; 85025; 86140; 87040 ×2; 93005; 96365; 96367; 96375; 96376; 99284; J1815 ×2; J2543; J3490

== ENCOUNTER 2020-07-29 15:50 | Emergency (ER) | payer MEDICARE | END 2020-07-29 17:31 | disposition home or self-care (01) | LOC: EDH 15:50 | DX: E11.621 Type 2 diabetes mellitus with foot ulcer (principal); L97.529 Non-pressure chronic ulcer of other part of left foot with unspecified severity; I10 Essential (primary) hypertension; Z88.6 Allergy status to analgesic agent; Z86.16 Personal history of COVID-19 | CPT/HCPCS: 73630 ==

== ENCOUNTER 2020-08-22 15:09 | Inpatient (IN) | payer MEDICARE ==
[2020-08-22] VITALS (10 sets, daily range): BP systolic 119–149; BP diastolic 67–100
[~2020-08-22] VITALS: Ht 149.9 cm; Wt 60.8 kg
[2020-08-22 15:44] LABS: BASOPHILS % (AUTO) 0.4 % (0.0-5.0); HEMATOCRIT 33.6 % (36-48); LYMPHOCYTES % (AUTO) 15.5 % (21.0-51.0); MEAN CORPUSCULAR HEMOGLOBIN 28.8 pg (27.0-33.0); MEAN CORPUSCULAR HGB CONC 31.8 g/dL (32.0-36.0); MEAN CORPUSCULAR VOLUME 90.3 fL (79-99); MONOCYTES % (AUTO) 9.7 % (3.0-13.0); NEUTROPHILS % (AUTO) 72.7 % (40.0-77.0); PLATELET COUNT (AUTO) 239 K/uL (130-400); RED BLOOD CELL COUNT(AUTO) 3.72 MIL/uL (4.00-5.50); RED CELL DISTRIBUTION WIDTH 12.1 % (11.0-15.5); WHITE BLOOD COUNT (AUTO) 7.1 K/uL (4.8-10.8)
[2020-08-22] MEDS ORDERED: 0.9%NACL 1000ML 1,000 ML IV ONE ×2 (15:52→16:15)
[2020-08-22] MEDS ORDERED: INSULIN HUMULIN R 100 UNIT/ML 3ML ONE ×2 (15:54→17:56)
[2020-08-22] MEDS ORDERED: ACETAMINOPHEN 500 MG TABLET ONE (15:57)
[2020-08-22 16:11] LABS: APPEARANCE,URINE SL CLOUDY (CLEAR); BILIRUBIN,URINE NEGATIVE (NEGATIVE); COLOR,URINE YELLOW (YELLOW); GLUCOSE, URINE (UA) >=1000 mg/dL (NEGATIVE); KETONES,URINE NEGATIVE (NEGATIVE); LEUKOCYTE ESTERASE ,URINE TRACE (NEGATIVE); NITRATE,URINE NEGATIVE (NEGATIVE); OCCULT BLOOD,URINE SMALL (NEGATIVE); PH,URINE 5.5 (5.0-8.0); PROTEIN,URINE TRACE mg/dL (NEGATIVE); UROBILINOGEN,URINE 0.2 mg/dL (0.2-1.0)
[2020-08-22 16:14] LABS: ALBUMIN 3.1 g/dL (3.5-5.0); BILIRUBIN,TOTAL 0.7 mg/dL (0.2-1.0); CREATININE 1.2 mg/dL (0.5-1.5); POTASSIUM 3.9 mmol/L (3.5-5.1); TOTAL PROTEIN, SERUM 7.7 g/dL (6.0-8.3)
[2020-08-22] MEDS ORDERED: ZOSYN 3.375GM+NS 50ML 50 ML IV ONE (16:15)
[2020-08-22 16:19] LABS: INR 1.06 (0.85-1.15); PROTHROMBIN TIME 11.5 SEC (9.6-11.6)
[2020-08-22 16:21] LABS: PARTIAL THROMBOPLASTIN TIME 28.9 SEC (26.3-35.5)
[2020-08-22] MEDS ORDERED: VANCOMYCIN 1G/250ML KIT 250 ML IV ONE (16:26)
[2020-08-22 16:29] LABS: ABG BASE EXCESS -0.1 mmol/L (-2.0-3.0); ABG HCO3 23.9 mmol/L (21.0-28.0); ABG OXYGEN SATURATION 94.4 % (95.0-99.0); ABG PCO2 37 mmHg (32-45)
[2020-08-22 16:42] LABS: WBC,URINE 26-50 /HPF (0-1)
[2020-08-22 16:44] LABS: BACTERIA,URINE Few /HPF (None Seen); SQUAMOUS EPITHELIAL CELL,UR Few /HPF (0-2)
[2020-08-22 16:48] LABS: ERYTHROCYTE SEDIMENTATION RATE 101 MM/HR (0-30)
[2020-08-22] MEDS ORDERED: MORPHINE 2 MG SYG IV PRN (17:00)
[2020-08-22] MEDS ORDERED: POTASSIUM CHLORIDE 10MEQ/100ML 100 ML IV PRN (17:00)
[2020-08-22] MEDS ORDERED: INSULIN REGULAR, HUMAN 3ML 100 UNIT in 0.9%NACL 100ML 99 ML IV PRN ×2 (17:00)
[2020-08-22] MEDS ORDERED: VANCOMYCIN PROTOCOL PER PHARMACY IV PRN (17:00)
[2020-08-22] MEDS ORDERED: 0.9%NACL 1000ML 1,000 ML IV SCH (17:00)
[2020-08-22] MEDS ORDERED: LACTULOSE 20 GM/30 ML UDCUP PO PRN (17:00)
[2020-08-22] MEDS ORDERED: ACETAMINOPHEN 325 MG TAB PO PRN (17:00)
[2020-08-22 17:42] LABS: CRP QUANTITATIVE 239.4 mg/L (0.00-9.0)
[2020-08-22] MEDS ORDERED: 0.9%NACL 1000ML 2,000 ML IV ONE (17:53)
[2020-08-22] MEDS ORDERED: 0.9%NACL 100ML 100 ML IV ONE (17:54)
[2020-08-22] MEDS ORDERED: DEXTROSE 5 %-0.45 % NACL 1,000 ML IV ONE (17:55)
[2020-08-22] MEDS: 0.9%NACL 1000ML 1,000 ML IV SCH ×2 (19:30→21:18)
[2020-08-22 20:33] LABS: POTASSIUM 3.7 mmol/L (3.5-5.1)
[2020-08-22 20:34] LABS: CREATININE 0.8 mg/dL (0.5-1.5)
[2020-08-22 20:42] LABS: CREATINE KINASE, TOTAL 38 U/L (21-232); MYOGLOBIN 35 ng/mL (10-92); TROPONIN I < 0.04 ng/mL (0.00-0.06)
[2020-08-22] MEDS: DEXTROSE 5 %-0.45 % NACL 1,000 ML IV PRN (21:17)
[2020-08-22] MEDS: ZOSYN 3.375GM+NS 50ML 50 ML IV SCH (21:18)
[2020-08-22] MEDS: FAMOTIDINE 20MG VIAL IV SCH (21:18)
[2020-08-23] VITALS (12 sets, daily range): BP systolic 106–154; BP diastolic 53–94
[2020-08-23] MEDS ORDERED: INSU100I24 SQ (00:33)
[2020-08-23] MEDS: DEXTROSE 5 %-0.45 % NACL 1,000 ML IV PRN (01:44)
[2020-08-23] MEDS: 0.9%NACL 1000ML 1,000 ML IV SCH ×2 (01:44→07:45)
[2020-08-23 03:01] LABS: ABG BASE EXCESS -0.4 mmol/L (-2.0-3.0); ABG HCO3 23.8 mmol/L (21.0-28.0); ABG OXYGEN SATURATION 95.7 % (95.0-99.0); ABG PCO2 38 mmHg (32-45)
[2020-08-23] MEDS: ZOSYN 3.375GM+NS 50ML 50 ML IV SCH ×3 (03:49→21:41)
[2020-08-23] MEDS: INSULIN HUMULIN R 100 UNIT/ML 3ML SQ SCH ×6 (05:35→21:56)
[2020-08-23 05:44] LABS: POTASSIUM 3.4 mmol/L (3.5-5.1)
[2020-08-23 05:45] LABS: CREATININE 0.7 mg/dL (0.5-1.5)
[2020-08-23] MEDS ORDERED: VANCOMYCIN 500MG+NS 100ML 100 ML IV SCH (06:00)
[2020-08-23 06:44] LABS: CREATININE 0.7 mg/dL (0.5-1.5); POTASSIUM 3.3 mmol/L (3.5-5.1)
[2020-08-23] MEDS: ENOXAPARIN SODIUM 30 MG/0.3 ML SQ SCH (07:47)
[2020-08-23] MEDS ORDERED: INSULIN GLARGINE 100 UNITS/ML 10 ML VIAL SQ SCH (11:45)
[2020-08-23] MEDS: ACETAMINOPHEN 325 MG TAB PO PRN ×2 (13:00→21:47)
[2020-08-23] MEDS ORDERED: INSULIN GLARGINE 100 UNITS/ML 10 ML VIAL SQ ONE (13:50)
[2020-08-23] MEDS: VANCOMYCIN 1G/250ML KIT 250 ML IV SCH (18:44)
[2020-08-23] MEDS: FAMOTIDINE 20MG VIAL IV SCH (21:41)
[2020-08-23] MEDS: SERTRALINE HCL 50 MG TABLET PO SCH (21:42)
[2020-08-24] VITALS (21 sets, daily range): BP systolic 116–166; BP diastolic 71–97
[2020-08-24] MEDS: ACETAMINOPHEN 325 MG TAB PO PRN ×2 (04:27→17:13)
[2020-08-24] MEDS: ZOSYN 3.375GM+NS 50ML 50 ML IV SCH ×3 (04:30→21:24)
[2020-08-24] MEDS: VANCOMYCIN 1G/250ML KIT 250 ML IV SCH ×2 (05:17→17:14)
[2020-08-24 05:30] LABS: ALBUMIN 2.3 g/dL (3.5-5.0); BILIRUBIN,TOTAL 0.8 mg/dL (0.2-1.0); CREATININE 0.6 mg/dL (0.5-1.5); POTASSIUM 3.8 mmol/L (3.5-5.1); TOTAL PROTEIN, SERUM 6.5 g/dL (6.0-8.3)
[2020-08-24 05:31] LABS: BASOPHILS % (AUTO) 0.5 % (0.0-5.0); EOSINOPHILS % (AUTO) 2.6 % (0.0-8.0); LYMPHOCYTES % (AUTO) 16.4 % (21.0-51.0); MEAN CORPUSCULAR HEMOGLOBIN 28.4 pg (27.0-33.0); MEAN CORPUSCULAR HGB CONC 31.4 g/dL (32.0-36.0); MEAN CORPUSCULAR VOLUME 90.6 fL (79-99); MONOCYTES % (AUTO) 12.2 % (3.0-13.0); NEUTROPHILS % (AUTO) 67.4 % (40.0-77.0); PLATELET COUNT (AUTO) 219 K/uL (130-400); RED CELL DISTRIBUTION WIDTH 12.1 % (11.0-15.5); WHITE BLOOD COUNT (AUTO) 6.7 K/uL (4.8-10.8)
[2020-08-24 06:36] LABS: HEMOGLOBIN A1C 12.4 % (4.0-6.0)
[2020-08-24] MEDS: ONDANSETRON 4MG INJ IV PRN (08:42)
[2020-08-24] MEDS: INSULIN HUMULIN R 100 UNIT/ML 3ML SQ SCH ×7 (08:48→21:00)
[2020-08-24] MEDS ORDERED: INSULIN GLARGINE 100 UNITS/ML 10 ML VIAL SQ SCH (11:00)
[2020-08-24] MEDS: ENOXAPARIN SODIUM 30 MG/0.3 ML SQ SCH (11:30)
[2020-08-24 13:01] LABS: INR 1.11 (0.85-1.15)
[2020-08-24 13:03] LABS: PARTIAL THROMBOPLASTIN TIME 30.6 SEC (26.3-35.5)
[2020-08-24] MEDS ORDERED: BUPIVACAINE/PF 0.5% 30ML VIAL ONE (17:24)
[2020-08-24] MEDS ORDERED: LIDOCAINE HCL 1% 20 ML VIAL ONE (17:24)
[2020-08-24] MEDS ORDERED: 0.9%NACL 1000ML 1,000 ML IV ONE (17:58)
[2020-08-24] MEDS ORDERED: PROPOFOL 10 MG/ML 20ML VIAL IV ONE (18:06)
[2020-08-24] MEDS ORDERED: MIDAZOLAM HCL 1 MG/ML 2ML VIAL ONE (18:06)
[2020-08-24] MEDS ORDERED: LIDOCAINE PF 100MG/5ML (2%) SYRINGE 5ML ONE (18:06)
[2020-08-24] MEDS ORDERED: FENTANYL CITRATE PF 50 MCG/1 ML 2ML VIAL ONE (18:07)
[2020-08-24] MEDS ORDERED: MEPERIDINE-PF 25 MG/ML SYG ONE (18:07)
[2020-08-24] MEDS: FAMOTIDINE 20MG VIAL IV SCH (21:24)
[2020-08-24] MEDS: SERTRALINE HCL 50 MG TABLET PO SCH (21:24)
[2020-08-25] VITALS (7 sets, daily range): BP systolic 116–156; BP diastolic 81–98
[2020-08-25 04:57] LABS: BASOPHILS % (AUTO) 0.4 % (0.0-5.0); EOSINOPHILS % (AUTO) 2.6 % (0.0-8.0); HEMATOCRIT 29.1 % (36-48); LYMPHOCYTES % (AUTO) 19.1 % (21.0-51.0); MEAN CORPUSCULAR HEMOGLOBIN 28.8 pg (27.0-33.0); MEAN CORPUSCULAR HGB CONC 31.6 g/dL (32.0-36.0); MEAN CORPUSCULAR VOLUME 91.2 fL (79-99); MONOCYTES % (AUTO) 9.6 % (3.0-13.0); NEUTROPHILS % (AUTO) 67.7 % (40.0-77.0); PLATELET COUNT (AUTO) 247 K/uL (130-400); RED BLOOD CELL COUNT(AUTO) 3.19 MIL/uL (4.00-5.50); RED CELL DISTRIBUTION WIDTH 12.2 % (11.0-15.5); WHITE BLOOD COUNT (AUTO) 6.9 K/uL (4.8-10.8)
[2020-08-25] MEDS: ZOSYN 3.375GM+NS 50ML 50 ML IV SCH ×3 (05:04→20:10)
[2020-08-25 05:05] LABS: ALBUMIN 2.1 g/dL (3.5-5.0); BILIRUBIN,TOTAL 0.7 mg/dL (0.2-1.0); CREATININE 0.6 mg/dL (0.5-1.5); POTASSIUM 3.3 mmol/L (3.5-5.1); TOTAL PROTEIN, SERUM 6.4 g/dL (6.0-8.3)
[2020-08-25] MEDS: VANCOMYCIN 1G/250ML KIT 250 ML IV SCH (05:32)
[2020-08-25] MEDS ORDERED: GLUCAGON 1MG KIT 1 MG ML IM PRN (05:45)
[2020-08-25] MEDS ORDERED: DEXTROSE 50%-WATER 50 ML DISP.SYRIN IV PRN (05:45)
[2020-08-25] MEDS: INSULIN HUMULIN R 100 UNIT/ML 3ML SQ SCH ×6 (07:30→20:07)
[2020-08-25] MEDS: ENOXAPARIN SODIUM 30 MG/0.3 ML SQ SCH (10:26)
[2020-08-25] MEDS: INSULIN GLARGINE 100 UNITS/ML 10 ML VIAL SQ SCH (11:13)
[2020-08-25] MEDS: ONDANSETRON 4MG INJ IV PRN (11:55)
[2020-08-25] MEDS: FAMOTIDINE 20MG VIAL IV SCH (20:10)
[2020-08-25] MEDS: SERTRALINE HCL 50 MG TABLET PO SCH (20:10)
[2020-08-26 03:57] VITALS: BP 140/94
[2020-08-26] MEDS: ZOSYN 3.375GM+NS 50ML 50 ML IV SCH ×3 (04:23→21:49)
[2020-08-26 04:32] LABS: BASOPHILS % (AUTO) 0.4 % (0.0-5.0); HEMATOCRIT 27.5 % (36-48); LYMPHOCYTES % (AUTO) 31.7 % (21.0-51.0); MEAN CORPUSCULAR HEMOGLOBIN 29.2 pg (27.0-33.0); MEAN CORPUSCULAR HGB CONC 32.7 g/dL (32.0-36.0); MEAN CORPUSCULAR VOLUME 89.3 fL (79-99); MONOCYTES % (AUTO) 8.8 % (3.0-13.0); NEUTROPHILS % (AUTO) 53.4 % (40.0-77.0); PLATELET COUNT (AUTO) 285 K/uL (130-400); RED BLOOD CELL COUNT(AUTO) 3.08 MIL/uL (4.00-5.50); RED CELL DISTRIBUTION WIDTH 12.4 % (11.0-15.5); WHITE BLOOD COUNT (AUTO) 5.6 K/uL (4.8-10.8)
[2020-08-26 04:57] LABS: ALBUMIN 2.1 g/dL (3.5-5.0); BILIRUBIN,TOTAL 0.4 mg/dL (0.2-1.0); CREATININE 0.6 mg/dL (0.5-1.5); POTASSIUM 3.8 mmol/L (3.5-5.1); TOTAL PROTEIN, SERUM 6.3 g/dL (6.0-8.3)
[2020-08-26] MEDS: INSULIN HUMULIN R 100 UNIT/ML 3ML SQ SCH ×7 (05:28→21:00)
[2020-08-26 08:02] VITALS: BP 145/92
[2020-08-26] MEDS: ENOXAPARIN SODIUM 30 MG/0.3 ML SQ SCH (08:44)
[2020-08-26] MEDS: ACETAMINOPHEN 325 MG TAB PO PRN (12:14)
[2020-08-26] MEDS: INSULIN GLARGINE 100 UNITS/ML 10 ML VIAL SQ SCH (12:18)
[2020-08-26 12:28] VITALS: BP 158/104
[2020-08-26 16:11] VITALS: BP 162/106
[2020-08-26 19:30] VITALS: BP 153/95
[2020-08-26] MEDS: FAMOTIDINE 20MG VIAL IV SCH (21:00)
[2020-08-26] MEDS: SERTRALINE HCL 50 MG TABLET PO SCH (21:49)
[2020-08-27] VITALS (7 sets, daily range): BP systolic 142–177; BP diastolic 86–110
[2020-08-27 05:42] LABS: BASOPHILS % (AUTO) 0.8 % (0.0-5.0); EOSINOPHILS % (AUTO) 5.3 % (0.0-8.0); HEMATOCRIT 30.6 % (36-48); LYMPHOCYTES % (AUTO) 30.9 % (21.0-51.0); MEAN CORPUSCULAR HEMOGLOBIN 28.5 pg (27.0-33.0); MEAN CORPUSCULAR HGB CONC 32.4 g/dL (32.0-36.0); MEAN CORPUSCULAR VOLUME 88.2 fL (79-99); MONOCYTES % (AUTO) 7.9 % (3.0-13.0); NEUTROPHILS % (AUTO) 54.1 % (40.0-77.0); PLATELET COUNT (AUTO) 389 K/uL (130-400); RED BLOOD CELL COUNT(AUTO) 3.47 MIL/uL (4.00-5.50); RED CELL DISTRIBUTION WIDTH 12.2 % (11.0-15.5); WHITE BLOOD COUNT (AUTO) 5.1 K/uL (4.8-10.8)
[2020-08-27 06:02] LABS: CREATININE 0.6 mg/dL (0.5-1.5); POTASSIUM 3.6 mmol/L (3.5-5.1)
[2020-08-27] MEDS: ZOSYN 3.375GM+NS 50ML 50 ML IV SCH ×3 (06:54→20:29)
[2020-08-27] MEDS: INSULIN HUMULIN R 100 UNIT/ML 3ML SQ SCH ×6 (06:54→21:00)
[2020-08-27] MEDS: ENOXAPARIN SODIUM 30 MG/0.3 ML SQ SCH (08:28)
[2020-08-27] MEDS ORDERED: INSULIN GLARGINE 100 UNITS/ML 10 ML VIAL SQ SCH (11:00)
[2020-08-27] MEDS: METFORMIN HCL 500 MG TABLET PO SCH ×2 (13:00→17:00)
[2020-08-27] MEDS: LISINOPRIL 20 MG TABLET PO SCH (13:14)
[2020-08-27] MEDS ORDERED: GLIPIZIDE 5 MG TABLET PO SCH (17:00)
[2020-08-27] MEDS: METOPROLOL TARTRATE 25 MG TAB PO SCH ×2 (17:15→20:31)
[2020-08-27] MEDS: FAMOTIDINE 20MG VIAL IV SCH (20:28)
[2020-08-27] MEDS: SERTRALINE HCL 50 MG TABLET PO SCH (20:30)
[2020-08-27] MEDS ORDERED: METOPROLOL TARTRATE 25 MG TAB PO SCH (21:00)
[2020-08-28 04:00] VITALS: BP 147/92
[2020-08-28] MEDS: ZOSYN 3.375GM+NS 50ML 50 ML IV SCH ×3 (05:11→21:10)
[2020-08-28] MEDS: INSULIN HUMULIN R 100 UNIT/ML 3ML SQ SCH ×7 (06:49→21:22)
[2020-08-28 07:00] VITALS: BP 158/108
[2020-08-28] MEDS ORDERED: INSULIN DEGLUDEC 30 UNIT SQ SCH (09:00)
[2020-08-28] MEDS: LISINOPRIL 20 MG TABLET PO SCH (09:09)
[2020-08-28] MEDS: METOPROLOL TARTRATE 25 MG TAB PO SCH ×2 (09:09→21:10)
[2020-08-28] MEDS: ENOXAPARIN SODIUM 30 MG/0.3 ML SQ SCH (09:10)
[2020-08-28 11:00] VITALS: BP 136/82
[2020-08-28] MEDS ORDERED: INSULIN GLARGINE 100 UNITS/ML 10 ML VIAL SQ SCH (11:30)
[2020-08-28 15:00] VITALS: BP 171/103
[2020-08-28 18:21] VITALS: BP 139/94
[2020-08-28 20:00] VITALS: BP 171/108
[2020-08-28] MEDS: FAMOTIDINE 20MG VIAL IV SCH (21:10)
[2020-08-28] MEDS: SERTRALINE HCL 50 MG TABLET PO SCH (21:12)
[2020-12-27] MEDS ORDERED: CLIN-141 PO (22:33)
== END 2020-08-29 00:15 | DRG 616 ==
LOC: EDH 15:09 → EDHIP 16:59 → 2DH 19:48 → 4BH 08-23 06:40
PROVIDERS: ADMIT Family Medicine; ATTEND Family Medicine
PROC: 0Y6U0Z0 Detachment at Left 3rd Toe, Complete, Open Approach (ICD-10-PCS; principal; 2020-08-24 18:07)
DX: E11.69 Type 2 diabetes mellitus with other specified complication (principal); A48.0 Gas gangrene; E11.52 Type 2 diabetes mellitus with diabetic peripheral angiopathy with gangrene; E87.1 Hypo-osmolality and hyponatremia; N39.0 Urinary tract infection, site not specified; L03.116 Cellulitis of left lower limb; M86.9 Osteomyelitis, unspecified; I24.8 Other forms of acute ischemic heart disease; L02.612 Cutaneous abscess of left foot; E11.10 Type 2 diabetes mellitus with ketoacidosis without coma; L03.031 Cellulitis of right toe; I10 Essential (primary) hypertension; G62.9 Polyneuropathy, unspecified; L03.032 Cellulitis of left toe; Z88.5 Allergy status to narcotic agent; Z20.822 Contact with and (suspected) exposure to COVID-19; D64.9 Anemia, unspecified; Z74.01 Bed confinement status; Z79.899 Other long term (current) drug therapy; Z83.3 Family history of diabetes mellitus; Z86.16 Personal history of COVID-19; Z91.19 Patient's noncompliance with other medical treatment and regimen
CPT/HCPCS: 36415; 36600; 73660; 80048; 80053; 81001; 82010; 82550; 82803; 82948; 83036; 83605; 83874; 84484; 85025; 85610; 85651; 85730; 86140; 87040; 87070; 87076; 87077; 87088; 87186; 87205; 87426; 88305; 88311; 93005; 93925; 97039; 99291; G0378; J1650; J1815; J2001; J2175; J2250; J2405; J2543; J2704; J3010; J3370; J3490; J7030; J7042; U0003

== ENCOUNTER → 2020-09-09 | Outpatient (CLI) | payer MEDICARE ==
[~2020-09-09] MED LIST changes: -APIX2.5T PO; -DEXA6TAB7 PO; -GLIP10TA9 PO; -INSU100I24 SQ; -METF-444 PO; -PREG50 PO
== END | disposition home or self-care (01) ==
LOC: WHH 10:45
PROVIDERS: ATTEND Podiatrist Foot & Ankle Surgery
DX: T87.89 Other complications of amputation stump (principal); E11.621 Type 2 diabetes mellitus with foot ulcer; L97.526 Non-pressure chronic ulcer of other part of left foot with bone involvement without evidence of necrosis; E11.52 Type 2 diabetes mellitus with diabetic peripheral angiopathy with gangrene; I96 Gangrene, not elsewhere classified; E11.42 Type 2 diabetes mellitus with diabetic polyneuropathy; E11.69 Type 2 diabetes mellitus with other specified complication; M86.8X7 Other osteomyelitis, ankle and foot; I10 Essential (primary) hypertension; F32.9 Major depressive disorder, single episode, unspecified; Z89.422 Acquired absence of other left toe(s); Z79.4 Long term (current) use of insulin; Z90.49 Acquired absence of other specified parts of digestive tract; Z79.899 Other long term (current) drug therapy; Y83.5 Amputation of limb(s) as the cause of abnormal reaction of the patient, or of later complication, without mention of misadventure at the time of the procedure
CPT/HCPCS: A4450; A6207; G0463; L3260

== ENCOUNTER → 2020-09-23 | Outpatient (CLI) | payer MEDICARE | END | disposition home or self-care (01) | LOC: WHH 10:40 | PROVIDERS: ATTEND Podiatrist Foot & Ankle Surgery | DX: T87.89 Other complications of amputation stump (principal); E11.621 Type 2 diabetes mellitus with foot ulcer; L97.526 Non-pressure chronic ulcer of other part of left foot with bone involvement without evidence of necrosis; E11.52 Type 2 diabetes mellitus with diabetic peripheral angiopathy with gangrene; I96 Gangrene, not elsewhere classified; E11.42 Type 2 diabetes mellitus with diabetic polyneuropathy; E11.69 Type 2 diabetes mellitus with other specified complication; M86.8X7 Other osteomyelitis, ankle and foot; I10 Essential (primary) hypertension; F32.9 Major depressive disorder, single episode, unspecified; Z89.422 Acquired absence of other left toe(s); Z79.4 Long term (current) use of insulin; Z90.49 Acquired absence of other specified parts of digestive tract; Z79.899 Other long term (current) drug therapy; Y83.5 Amputation of limb(s) as the cause of abnormal reaction of the patient, or of later complication, without mention of misadventure at the time of the procedure | CPT/HCPCS: A4450; A6207; G0463 ==

== ENCOUNTER → 2020-10-21 | Outpatient (CLI) | payer MEDICARE ==
[~2020-10-21] MED LIST changes: +LIDOCAINE HCL 2% JELLY 5 ML TP ONE
== END | disposition home or self-care (01) ==
LOC: WHH 10:11
PROVIDERS: ATTEND Podiatrist Foot & Ankle Surgery
DX: T87.89 Other complications of amputation stump (principal); E11.621 Type 2 diabetes mellitus with foot ulcer; L97.526 Non-pressure chronic ulcer of other part of left foot with bone involvement without evidence of necrosis; E11.52 Type 2 diabetes mellitus with diabetic peripheral angiopathy with gangrene; I96 Gangrene, not elsewhere classified; E11.42 Type 2 diabetes mellitus with diabetic polyneuropathy; E11.69 Type 2 diabetes mellitus with other specified complication; M86.8X7 Other osteomyelitis, ankle and foot; I10 Essential (primary) hypertension; F32.9 Major depressive disorder, single episode, unspecified; Z89.422 Acquired absence of other left toe(s); Z79.4 Long term (current) use of insulin; Z90.49 Acquired absence of other specified parts of digestive tract; Z79.899 Other long term (current) drug therapy; Y83.5 Amputation of limb(s) as the cause of abnormal reaction of the patient, or of later complication, without mention of misadventure at the time of the procedure
CPT/HCPCS: 97597; A6207

== ENCOUNTER → 2020-11-04 | Outpatient (CLI) | payer MEDICARE ==
[~2020-11-04] MED LIST changes: -LIDOCAINE HCL 2% JELLY 5 ML TP ONE; +LIDOCAINE HCL 4% LTA SOL 4 ML VIAL TP ONE
== END | disposition home or self-care (01) ==
LOC: WHH 10:45
PROVIDERS: ATTEND Podiatrist Foot & Ankle Surgery
DX: T87.89 Other complications of amputation stump (principal); E11.621 Type 2 diabetes mellitus with foot ulcer; L97.526 Non-pressure chronic ulcer of other part of left foot with bone involvement without evidence of necrosis; E11.52 Type 2 diabetes mellitus with diabetic peripheral angiopathy with gangrene; I96 Gangrene, not elsewhere classified; E11.42 Type 2 diabetes mellitus with diabetic polyneuropathy; E11.69 Type 2 diabetes mellitus with other specified complication; M86.8X7 Other osteomyelitis, ankle and foot; I10 Essential (primary) hypertension; F32.9 Major depressive disorder, single episode, unspecified; Z89.422 Acquired absence of other left toe(s); Z79.4 Long term (current) use of insulin; Z90.49 Acquired absence of other specified parts of digestive tract; Z79.899 Other long term (current) drug therapy; Y83.5 Amputation of limb(s) as the cause of abnormal reaction of the patient, or of later complication, without mention of misadventure at the time of the procedure
CPT/HCPCS: G0463

== ENCOUNTER → 2020-12-02 | Outpatient (CLI) | payer MEDICARE ==
[~2020-12-02] MED LIST changes: -LIDOCAINE HCL 4% LTA SOL 4 ML VIAL TP ONE
== END | disposition home or self-care (01) ==
LOC: WHH 08:22
PROVIDERS: ATTEND Podiatrist Foot & Ankle Surgery
DX: T87.89 Other complications of amputation stump (principal); E11.621 Type 2 diabetes mellitus with foot ulcer; L97.526 Non-pressure chronic ulcer of other part of left foot with bone involvement without evidence of necrosis; E11.52 Type 2 diabetes mellitus with diabetic peripheral angiopathy with gangrene; I96 Gangrene, not elsewhere classified; E11.42 Type 2 diabetes mellitus with diabetic polyneuropathy; E11.69 Type 2 diabetes mellitus with other specified complication; M86.8X7 Other osteomyelitis, ankle and foot; I10 Essential (primary) hypertension; F32.9 Major depressive disorder, single episode, unspecified; Z89.422 Acquired absence of other left toe(s); Z79.4 Long term (current) use of insulin; Z90.49 Acquired absence of other specified parts of digestive tract; Z79.899 Other long term (current) drug therapy; Y83.5 Amputation of limb(s) as the cause of abnormal reaction of the patient, or of later complication, without mention of misadventure at the time of the procedure
CPT/HCPCS: G0463

== ENCOUNTER 2020-12-14 14:28 | Emergency (ER) | payer MEDICARE ==
[~2020-12-14] VITALS: Ht 152.4 cm; Wt 55.8 kg
[2020-12-14 16:04] VITALS: BP 100/61
[2020-12-14] MEDS ORDERED: HYDROCODONE/ACETAMINOPHEN 5/325 MG TAB PO ONE (18:00)
[2020-12-14] MEDS ORDERED: ACET1TAB25 PO (19:23)
[2020-12-14] MEDS ORDERED: HYDROCODONE/ACETAMINOPHEN 5/325 MG TAB ONE (19:24)
[2020-12-14 19:30] VITALS: BP 132/78
== END 2020-12-14 20:00 | disposition home or self-care (01) ==
LOC: EDH 14:28
DX: S40.012A Contusion of left shoulder, initial encounter (principal); S09.90XA Unspecified injury of head, initial encounter; M54.2 Cervicalgia; M25.552 Pain in left hip; M54.5 Low back pain; M25.572 Pain in left ankle and joints of left foot; I10 Essential (primary) hypertension; E10.9 Type 1 diabetes mellitus without complications; I73.9 Peripheral vascular disease, unspecified; E78.00 Pure hypercholesterolemia, unspecified; Z88.6 Allergy status to analgesic agent; Z79.899 Other long term (current) drug therapy; V49.49XA Driver injured in collision with other motor vehicles in traffic accident, initial encounter; Y93.89 Activity, other specified; Y92.89 Other specified places as the place of occurrence of the external cause; Y99.8 Other external cause status
CPT/HCPCS: 70450; 71045; 72100; 72125; 72170; 73030; 73502; 73610

== ENCOUNTER 2020-12-27 21:22 | Emergency (ER) | payer MEDICARE ==
[~2020-12-27] VITALS: Ht 149.9 cm; Wt 55.3 kg
[~2020-12-27 21:22] MED LIST changes: +ACET1TAB25 PO
[2020-12-27 21:23] VITALS: BP 143/90
[2020-12-27] MEDS ORDERED: CLINDAMYCIN 150 MG CAP PO ONE (22:30)
[2020-12-27] MEDS ORDERED: ERYT1OIN7 OD (22:33)
[2020-12-27] MEDS ORDERED: CLIN300C10 PO (22:33)
== END 2020-12-27 23:00 | disposition home or self-care (01) ==
LOC: EDH 21:22
DX: H00.012 Hordeolum externum right lower eyelid (principal); E11.51 Type 2 diabetes mellitus with diabetic peripheral angiopathy without gangrene; I10 Essential (primary) hypertension; Z79.899 Other long term (current) drug therapy; Z88.6 Allergy status to analgesic agent; Z87.442 Personal history of urinary calculi; Z90.49 Acquired absence of other specified parts of digestive tract

== ENCOUNTER 2021-03-15 18:09 | Inpatient (IN) | payer MEDICARE ==
[~2021-03-15] VITALS: Ht 149.9 cm; Wt 58.0 kg
[~2021-03-15 18:09] MED LIST changes: +CLIN-141 PO; +ERYT1OIN7 OD
[2021-03-15 18:59] LABS: BASOPHILS % (AUTO) 0.4 % (0.0-5.0); HEMATOCRIT 31.3 % (36-48); LYMPHOCYTES % (AUTO) 16.5 % (21.0-51.0); MEAN CORPUSCULAR HEMOGLOBIN 29.1 pg (27.0-33.0); MEAN CORPUSCULAR HGB CONC 32.6 g/dL (32.0-36.0); MEAN CORPUSCULAR VOLUME 89.4 fL (79-99); MONOCYTES % (AUTO) 6.6 % (3.0-13.0); PLATELET COUNT (AUTO) 391 K/uL (130-400); RED CELL DISTRIBUTION WIDTH 11.9 % (11.0-15.5); WHITE BLOOD COUNT (AUTO) 9.4 K/uL (4.8-10.8)
[2021-03-15] MEDS ORDERED: HYDROCODONE/ACETAMINOPHEN 10/325 MG TAB PO ONE (19:00)
[2021-03-15] MEDS ORDERED: ZOSYN 3.375GM+NS 50ML 3.38 GM in 0.9%NACL 50ML 50 ML IV SCH (19:00)
[2021-03-15 19:59] LABS: CRP QUANTITATIVE 206.3 mg/L (0.00-9.0)
[2021-03-15] MEDS ORDERED: ZOSYN 3.375GM +NS 50ML IV SCH (20:00)
[2021-03-15 20:06] LABS: CREATININE 1.1 mg/dL (0.5-1.5); POTASSIUM 5.1 mmol/L (3.5-5.1)
[2021-03-15 20:11] LABS: ALBUMIN 2.7 g/dL (3.5-5.0); BILIRUBIN,TOTAL 0.2 mg/dL (0.2-1.0); TOTAL PROTEIN, SERUM 7.6 g/dL (6.0-8.3)
[2021-03-15] MEDS ORDERED: ACETAMINOPHEN 325 MG TAB PO PRN (21:30)
[2021-03-15] MEDS ORDERED: VITAD50000 PO (21:55)
[2021-03-15] MEDS ORDERED: ATOR10 PO (21:55)
[2021-03-15] MEDS ORDERED: GLIP5TAB11 PO (21:55)
[2021-03-15] MEDS ORDERED: LEVO50CA4 PO (21:55)
[2021-03-15] MEDS ORDERED: SULF1TAB42 PO (21:55)
[2021-03-15] MEDS ORDERED: INSU100I24 SQ (21:55)
[2021-03-15] MEDS ORDERED: LOSA1TAB37 PO (21:55)
[2021-03-15 22:03] LABS: PROTHROMBIN TIME 10.9 SEC (9.6-11.6)
[2021-03-15 22:04] LABS: PARTIAL THROMBOPLASTIN TIME 24.8 SEC (26.3-35.5)
[2021-03-16] VITALS (14 sets, daily range): BP systolic 83–164; BP diastolic 49–98
[2021-03-16] MEDS: 0.9%NACL 1000ML 1,000 ML IV SCH ×2 (00:56→22:00)
[2021-03-16] MEDS: ZOSYN 3.375GM+NS 50ML 50 ML IV SCH ×3 (05:24→22:10)
[2021-03-16] MEDS: LEVOTHYROXINE 50 MCG TABLET PO SCH (06:30)
[2021-03-16 06:38] LABS: BASOPHILS % (AUTO) 0.5 % (0.0-5.0); HEMATOCRIT 31.3 % (36-48); LYMPHOCYTES % (AUTO) 10.7 % (21.0-51.0); MEAN CORPUSCULAR HEMOGLOBIN 29.2 pg (27.0-33.0); MEAN CORPUSCULAR HGB CONC 31.9 g/dL (32.0-36.0); MEAN CORPUSCULAR VOLUME 91.5 fL (79-99); MONOCYTES % (AUTO) 8.6 % (3.0-13.0); NEUTROPHILS % (AUTO) 76.7 % (40.0-77.0); PLATELET COUNT (AUTO) 361 K/uL (130-400); RED BLOOD CELL COUNT(AUTO) 3.42 MIL/uL (4.00-5.50); RED CELL DISTRIBUTION WIDTH 11.8 % (11.0-15.5)
[2021-03-16 07:07] LABS: APPEARANCE,URINE CLEAR (CLEAR); BILIRUBIN,URINE NEGATIVE (NEGATIVE); COLOR,URINE YELLOW (YELLOW); GLUCOSE, URINE (UA) 250 mg/dL (NEGATIVE); KETONES,URINE NEGATIVE (NEGATIVE); LEUKOCYTE ESTERASE ,URINE NEGATIVE (NEGATIVE); NITRATE,URINE NEGATIVE (NEGATIVE); OCCULT BLOOD,URINE NEGATIVE (NEGATIVE); PH,URINE 7.5 (5.0-8.0); PROTEIN,URINE 30 mg/dL (NEGATIVE)
[2021-03-16 07:09] LABS: CREATININE 0.9 mg/dL (0.5-1.5); PHOSPHORUS 4.4 mg/dL (2.5-4.9); POTASSIUM 5.3 mmol/L (3.5-5.1); THYROID STIMULATING HORMONE 4.7 uIU/mL (0.36-3.74)
[2021-03-16 07:11] LABS: HEMOGLOBIN A1C 13.9 % (4.0-6.0)
[2021-03-16 07:12] LABS: BACTERIA,URINE Rare /HPF (None Seen); RBC,URINE 0-1 /HPF (0-1); SQUAMOUS EPITHELIAL CELL,UR Few /HPF (0-2); WBC,URINE 0-1 /HPF (0-1)
[2021-03-16] MEDS: INSULIN LISPRO 100 UNIT/ML 3ML SQ SCH ×4 (07:30→21:00)
[2021-03-16] MEDS: LOSARTAN 50 MG TABLET PO SCH (08:09)
[2021-03-16] MEDS: HYDROCHLOROTHIAZIDE 25 MG TABLET PO SCH (08:09)
[2021-03-16] MEDS: FAMOTIDINE 20MG TAB PO SCH (08:09)
[2021-03-16] MEDS ORDERED: VANCOMYCIN PROTOCOL PER PHARMACY IV SCH (12:00)
[2021-03-16] MEDS ORDERED: 0.9%NACL 50ML 50 ML IV ONE (13:01)
[2021-03-16] MEDS: VANCOMYCIN 1G/250ML KIT 250 ML IV SCH (13:39)
[2021-03-16] MEDS ORDERED: LIDOCAINE HCL 1% 20 ML VIAL ONE (19:52)
[2021-03-16] MEDS ORDERED: BUPIVACAINE/PF 0.5% 30ML VIAL ONE (19:52)
[2021-03-16] MEDS ORDERED: MIDAZOLAM HCL 1 MG/ML 2ML VIAL ONE (19:55)
[2021-03-16] MEDS ORDERED: PROPOFOL 1000 MG/100 ML 100 ML IV ONE (19:56)
[2021-03-16] MEDS ORDERED: KETAMINE 50MG/ML SYRINGE 50 MG/ML DISP.SYRIN IV ONE (19:57)
[2021-03-16] MEDS: ATORVASTATIN 10 MG TABLET PO SCH (22:10)
[2021-03-17 04:21] VITALS: BP 100/76
[2021-03-17] MEDS: LEVOTHYROXINE 50 MCG TABLET PO SCH (06:05)
[2021-03-17] MEDS: INSULIN LISPRO 100 UNIT/ML 3ML SQ SCH ×4 (06:06→20:51)
[2021-03-17] MEDS: ZOSYN 3.375GM+NS 50ML 50 ML IV SCH ×3 (06:06→20:50)
[2021-03-17 07:25] VITALS: BP 130/83
[2021-03-17 10:06] VITALS: BP 130/83
[2021-03-17] MEDS: LOSARTAN 50 MG TABLET PO SCH (10:14)
[2021-03-17] MEDS: FAMOTIDINE 20MG TAB PO SCH (10:15)
[2021-03-17] MEDS: HYDROCHLOROTHIAZIDE 25 MG TABLET PO SCH (10:15)
[2021-03-17 11:25] VITALS: BP 162/106
[2021-03-17] MEDS ORDERED: 0.9% NACL 250ML 250 ML ONE (12:02)
[2021-03-17] MEDS: VANCOMYCIN 1G/250ML KIT 250 ML IV SCH (12:20)
[2021-03-17] MEDS: ASPIRIN 81 MG EC TAB PO SCH (12:51)
[2021-03-17] MEDS: 0.9%NACL 1000ML 1,000 ML IV SCH (14:46)
[2021-03-17 15:25] VITALS: BP 123/79
[2021-03-17 20:00] VITALS: BP 128/89
[2021-03-17] MEDS: ATORVASTATIN 10 MG TABLET PO SCH (20:50)
[2021-03-18] VITALS (7 sets, daily range): BP systolic 82–189; BP diastolic 52–120
[2021-03-18] MEDS: ZOSYN 3.375GM+NS 50ML 50 ML IV SCH ×3 (04:27→19:53)
[2021-03-18 04:49] LABS: HEMATOCRIT 29.7 % (36-48); MEAN CORPUSCULAR HEMOGLOBIN 29.2 pg (27.0-33.0); MEAN CORPUSCULAR VOLUME 91.4 fL (79-99); RED BLOOD CELL COUNT(AUTO) 3.25 MIL/uL (4.00-5.50); RED CELL DISTRIBUTION WIDTH 11.8 % (11.0-15.5); WHITE BLOOD COUNT (AUTO) 6.1 K/uL (4.8-10.8)
[2021-03-18 04:57] LABS: CREATININE 1.1 mg/dL (0.5-1.5); POTASSIUM 4.6 mmol/L (3.5-5.1)
[2021-03-18] MEDS: LEVOTHYROXINE 50 MCG TABLET PO SCH (05:33)
[2021-03-18] MEDS: INSULIN LISPRO 100 UNIT/ML 3ML SQ SCH ×4 (06:48→20:00)
[2021-03-18] MEDS ORDERED: COMPOUND IV MISC 1 EACH IVSOLN MISC PRN (08:30)
[2021-03-18] MEDS: ASPIRIN 81 MG EC TAB PO SCH (08:51)
[2021-03-18] MEDS: LOSARTAN 50 MG TABLET PO SCH (08:51)
[2021-03-18] MEDS: FAMOTIDINE 20MG TAB PO SCH (08:51)
[2021-03-18] MEDS: HYDROCHLOROTHIAZIDE 25 MG TABLET PO SCH (08:52)
[2021-03-18] MEDS: 0.9%NACL 1000ML 1,000 ML IV SCH (10:00)
[2021-03-18] MEDS: VANCOMYCIN 1G/250ML KIT 250 ML IV SCH (13:24)
[2021-03-18 18:01] LABS: INR 1.02 (0.85-1.15); PROTHROMBIN TIME 11.1 SEC (9.6-11.6)
[2021-03-18] MEDS: ATORVASTATIN 10 MG TABLET PO SCH (19:53)
[2021-03-19 03:08] VITALS: BP 133/89
[2021-03-19] MEDS: ZOSYN 3.375GM+NS 50ML 50 ML IV SCH (04:19)
[2021-03-19 04:36] LABS: HEMATOCRIT 28.8 % (36-48); MEAN CORPUSCULAR HEMOGLOBIN 28.8 pg (27.0-33.0); MEAN CORPUSCULAR HGB CONC 31.6 g/dL (32.0-36.0); MEAN CORPUSCULAR VOLUME 91.1 fL (79-99); RED BLOOD CELL COUNT(AUTO) 3.16 MIL/uL (4.00-5.50); RED CELL DISTRIBUTION WIDTH 11.7 % (11.0-15.5); WHITE BLOOD COUNT (AUTO) 6.6 K/uL (4.8-10.8)
[2021-03-19 04:55] LABS: CREATININE 0.8 mg/dL (0.5-1.5); POTASSIUM 4.5 mmol/L (3.5-5.1)
[2021-03-19] MEDS: LEVOTHYROXINE 50 MCG TABLET PO SCH (05:53)
[2021-03-19] MEDS: 0.9%NACL 1000ML 1,000 ML IV SCH (05:55)
[2021-03-19] MEDS: INSULIN LISPRO 100 UNIT/ML 3ML SQ SCH ×4 (06:20→21:01)
[2021-03-19 07:15] VITALS: BP 146/92
[2021-03-19] MEDS ORDERED: RIVAROXABAN 15 MG TABLET ONE (08:04)
[2021-03-19] MEDS: HYDROCHLOROTHIAZIDE 25 MG TABLET PO SCH (08:15)
[2021-03-19] MEDS: ASPIRIN 81 MG EC TAB PO SCH (08:16)
[2021-03-19] MEDS: LOSARTAN 50 MG TABLET PO SCH (08:16)
[2021-03-19] MEDS: FAMOTIDINE 20MG TAB PO SCH (08:17)
[2021-03-19] MEDS: RIVAROXABAN 2.5 MG TABLET PO SCH ×2 (08:29→20:11)
[2021-03-19 11:15] VITALS: BP 161/102
[2021-03-19] MEDS ORDERED: DIPH,PERTUSS(ACELL),TET VAC/PF 0.5 ML VIAL IM ONE (13:30)
[2021-03-19] MEDS ORDERED: 0.9% NACL 250ML 250 ML ONE (13:54)
[2021-03-19] MEDS: VANCOMYCIN 1G/250ML KIT 250 ML IV SCH (13:57)
[2021-03-19 15:15] VITALS: BP 163/118
[2021-03-19 20:00] VITALS: BP 135/89
[2021-03-19] MEDS: ATORVASTATIN 10 MG TABLET PO SCH (20:11)
[2021-03-19] MEDS ORDERED: VANCOMYCIN 750MG VIAL IVPB ONE (22:00)
[2021-03-19] MEDS ORDERED: 0.9% NACL 250ML 250 ML IV ONE (22:00)
[2021-03-20] VITALS: BP 144/88
[2021-03-20] MEDS: 0.9%NACL 1000ML 1,000 ML IV SCH (02:29)
[2021-03-20 04:00] VITALS: BP 148/92
[2021-03-20] MEDS ORDERED: 0.9%NACL 100ML 100 ML IV SCH (06:00)
[2021-03-20] MEDS ORDERED: VANCOMYCIN 500MG+NS 100ML IVPB IV SCH (06:00)
[2021-03-20] MEDS: LEVOTHYROXINE 50 MCG TABLET PO SCH (06:28)
[2021-03-20 06:31] LABS: BASOPHILS % (AUTO) 0.7 % (0.0-5.0); EOSINOPHILS % (AUTO) 3.9 % (0.0-8.0); HEMATOCRIT 28.7 % (36-48); LYMPHOCYTES % (AUTO) 22.5 % (21.0-51.0); MEAN CORPUSCULAR HEMOGLOBIN 29.1 pg (27.0-33.0); MEAN CORPUSCULAR HGB CONC 31.7 g/dL (32.0-36.0); MEAN CORPUSCULAR VOLUME 91.7 fL (79-99); MONOCYTES % (AUTO) 5.8 % (3.0-13.0); NEUTROPHILS % (AUTO) 66.2 % (40.0-77.0); PLATELET COUNT (AUTO) 387 K/uL (130-400); RED BLOOD CELL COUNT(AUTO) 3.13 MIL/uL (4.00-5.50); RED CELL DISTRIBUTION WIDTH 11.9 % (11.0-15.5); WHITE BLOOD COUNT (AUTO) 7.6 K/uL (4.8-10.8)
[2021-03-20] MEDS: INSULIN LISPRO 100 UNIT/ML 3ML SQ SCH (06:41)
[2021-03-20 06:58] LABS: ALBUMIN 2.4 g/dL (3.5-5.0); BILIRUBIN,TOTAL 0.2 mg/dL (0.2-1.0); CREATININE 0.8 mg/dL (0.5-1.5); POTASSIUM 4.2 mmol/L (3.5-5.1); TOTAL PROTEIN, SERUM 7.4 g/dL (6.0-8.3)
[2021-03-20 08:00] VITALS: BP 133/93
[2021-03-20] MEDS: LOSARTAN 50 MG TABLET PO SCH (08:12)
[2021-03-20] MEDS: ASPIRIN 81 MG EC TAB PO SCH (08:12)
[2021-03-20] MEDS: HYDROCHLOROTHIAZIDE 25 MG TABLET PO SCH (08:12)
[2021-03-20] MEDS: FAMOTIDINE 20MG TAB PO SCH (08:12)
[2021-03-20] MEDS: RIVAROXABAN 2.5 MG TABLET PO SCH (08:12)
[2021-03-20] MEDS ORDERED: FLUCONAZOLE 200 MG/NS 100 ML 100 ML IV SCH (09:00)
[2021-03-20] MEDS ORDERED: INSULIN HUMULIN R 100 UNIT/ML 3ML SQ SCH ×2 (11:30)
[2021-03-20 12:00] VITALS: BP 143/89
[2021-03-20 16:00] VITALS: BP 140/86
[2021-03-20] MEDS ORDERED: INSULIN GLARGINE 100 UNITS/ML 10 ML VIAL SQ SCH (21:00)
== END 2021-03-20 18:40 | DRG 987 ==
LOC: EDH 18:09 → EDHIP 21:28 → 3DH 03-16 21:19
PROVIDERS: ADMIT Internal Medicine; ATTEND Internal Medicine
PROC: 0RBV0ZZ Excision of Left Metacarpophalangeal Joint, Open Approach (ICD-10-PCS; principal; 2021-03-16 20:04)
PROC: 3E0234Z Introduction of Serum, Toxoid and Vaccine into Muscle, Percutaneous Approach (ICD-10-PCS; 2021-03-19)
PROC: 02HV33Z Insertion of Infusion Device into Superior Vena Cava, Percutaneous Approach (ICD-10-PCS; 2021-03-19)
DX: E11.621 Type 2 diabetes mellitus with foot ulcer (principal); A48.0 Gas gangrene; L03.116 Cellulitis of left lower limb; E11.52 Type 2 diabetes mellitus with diabetic peripheral angiopathy with gangrene; L02.612 Cutaneous abscess of left foot; M86.8X7 Other osteomyelitis, ankle and foot; T79.7XXA Traumatic subcutaneous emphysema, initial encounter; L02.611 Cutaneous abscess of right foot; L97.529 Non-pressure chronic ulcer of other part of left foot with unspecified severity; E11.40 Type 2 diabetes mellitus with diabetic neuropathy, unspecified; Z20.822 Contact with and (suspected) exposure to COVID-19; I10 Essential (primary) hypertension; E78.5 Hyperlipidemia, unspecified; E03.9 Hypothyroidism, unspecified; E66.9 Obesity, unspecified; E11.69 Type 2 diabetes mellitus with other specified complication; E87.5 Hyperkalemia; B95.4 Other streptococcus as the cause of diseases classified elsewhere; B95.2 Enterococcus as the cause of diseases classified elsewhere; E78.00 Pure hypercholesterolemia, unspecified; M85.80 Other specified disorders of bone density and structure, unspecified site; Z68.25 Body mass index [BMI] 25.0-25.9, adult; Z74.01 Bed confinement status; Z79.4 Long term (current) use of insulin; Z87.442 Personal history of urinary calculi; Z89.429 Acquired absence of other toe(s), unspecified side; Z23 Encounter for immunization; Z88.8 Allergy status to other drugs, medicaments and biological substances; Z82.5 Family history of asthma and other chronic lower respiratory diseases; Z83.3 Family history of diabetes mellitus; Z80.9 Family history of malignant neoplasm, unspecified; Z82.49 Family history of ischemic heart disease and other diseases of the circulatory system; Z82.3 Family history of stroke
CPT/HCPCS: 36415; 71045; 73630; 73718; 80048; 80053; 80202; 81001; 82948; 83036; 83605; 84100; 84145; 84443; 85025; 85027; 85610; 85730; 86140; 87040; 87070; 87076; 87077; 87186; 87205; 87635; 90715; 93005; 93925; 97039; C1894; G0378; J1450; J1815; J2250; J2543; J2704; J3370; J3490; J7030; J7050

== ENCOUNTER 2021-10-22 15:42 | Emergency (ER) | payer OTHER, MEDICARE ==
[~2021-10-22] VITALS: Ht 149.9 cm; Wt 56.7 kg
[~2021-10-22 15:42] MED LIST changes: -ACET1TAB25 PO; +ATOR10 PO; -CLIN-141 PO; -ERYT1OIN7 OD; +GLIP5TAB11 PO; +INSU100I24 SQ; +LEVO50CA4 PO; -LISI20TA24 PO; +LOSA1TAB37 PO; -SERT50TA PO; +VITAD50000 PO
[2021-10-22 16:10] LABS: BASOPHILS % (AUTO) 0.6 % (0.0-5.0); HEMATOCRIT 31.8 % (36-48); LYMPHOCYTES % (AUTO) 37.6 % (21.0-51.0); MEAN CORPUSCULAR HEMOGLOBIN 28.5 pg (27.0-33.0); MEAN CORPUSCULAR HGB CONC 32.4 g/dL (32.0-36.0); MEAN CORPUSCULAR VOLUME 88.1 fL (79-99); MONOCYTES % (AUTO) 7.8 % (3.0-13.0); NEUTROPHILS % (AUTO) 47.2 % (40.0-77.0); PLATELET COUNT (AUTO) 245 K/uL (130-400); RED BLOOD CELL COUNT(AUTO) 3.61 MIL/uL (4.00-5.50); RED CELL DISTRIBUTION WIDTH 12.9 % (11.0-15.5); WHITE BLOOD COUNT (AUTO) 5.1 K/uL (4.8-10.8)
[2021-10-22 16:29] LABS: CREATININE 0.8 mg/dL (0.5-1.5)
[2021-10-22] MEDS ORDERED: CLINDAMYCIN IVPB 600MG/50ML 50 ML IV SCH (16:30)
[2021-10-22 16:33] LABS: ALBUMIN 3.2 g/dL (3.5-5.0); BILIRUBIN,TOTAL 0.4 mg/dL (0.2-1.0)
[2021-10-22] MEDS ORDERED: AMOX500C2 PO (16:54)
[2021-10-22] MEDS ORDERED: CIPR-278 PO (16:54)
[2021-10-22 17:24] VITALS: BP 135/74
== END 2021-10-22 17:27 | disposition home or self-care (01) ==
LOC: EDH 15:42
DX: L03.116 Cellulitis of left lower limb (principal); D64.9 Anemia, unspecified; E11.51 Type 2 diabetes mellitus with diabetic peripheral angiopathy without gangrene; E03.9 Hypothyroidism, unspecified; E78.00 Pure hypercholesterolemia, unspecified; I10 Essential (primary) hypertension; Z88.6 Allergy status to analgesic agent; Z79.84 Long term (current) use of oral hypoglycemic drugs; Z79.899 Other long term (current) drug therapy
CPT/HCPCS: 36415; 73630; 80053; 82948; 83605; 84484; 85025; 96374; 99284; J3490

== ENCOUNTER 2023-01-24 11:08 | Emergency (ER) | payer OTHER, MEDICARE ==
[~2023-01-24] VITALS: Ht 149.9 cm; Wt 58.1 kg
[~2023-01-24 11:08] MED LIST changes: +AMOX500C2 PO; +CIPR-278 PO
[2023-01-24 11:34] VITALS: BP 187/115; PULSE 104; RESP 16; O2SAT 99
[2023-01-24 12:36] LABS: BASOPHILS # (AUTO) 0.03 K/uL (0.00-0.20); BASOPHILS % (AUTO) 0.3 % (0.0-5.0); EOSINOPHILS # (AUTO) 0.11 K/uL (0.00-0.70); EOSINOPHILS % (AUTO) 1.1 % (0.0-8.0); HEMATOCRIT 34.7 % (36-48); IMMATURE GRANULOCYTE ABSOLUTE 0.04 K/uL (0-1); LYMPHOCYTES # (AUTO) 1.3 K/uL (1.0-4.8); LYMPHOCYTES % (AUTO) 12.3 % (21.0-51.0); MEAN CORPUSCULAR HEMOGLOBIN 29.8 pg (27.0-33.0); MEAN CORPUSCULAR HGB CONC 33.7 g/dL (32.0-36.0); MEAN CORPUSCULAR VOLUME 88.5 fL (79-99); MONOCYTES # (AUTO) 0.7 K/uL (0.1-1.0); MONOCYTES % (AUTO) 6.4 % (3.0-13.0); NEUTROPHILS # (AUTO) 8.2 K/uL (1.8-7.7); NEUTROPHILS % (AUTO) 79.5 % (40.0-77.0); PLATELET COUNT (AUTO) 222 K/uL (130-400); RED BLOOD CELL COUNT(AUTO) 3.92 MIL/uL (4.00-5.50); RED CELL DISTRIBUTION WIDTH 12.8 % (11.0-15.5); WHITE BLOOD COUNT (AUTO) 10.3 K/uL (4.8-10.8)
[2023-01-24 12:56] LABS: ALBUMIN 2.6 g/dL (3.5-5.0); BILIRUBIN,TOTAL 0.4 mg/dL (0.2-1.0); CREATININE 1.4 mg/dL (0.5-1.5)
[2023-01-24] MEDS ORDERED: ONDANSETRON 4MG INJ IVP ONE (13:00)
[2023-01-24] MEDS ORDERED: KETOROLAC 30MG VIAL (30MG/ML) IVP ONE (13:00)
[2023-01-24] MEDS ORDERED: DIAZEPAM 5 MG TABLET PO ONE (13:00)
== END 2023-01-24 14:59 | disposition home or self-care (01) ==
LOC: EDH 11:08
DX: R07.89 Other chest pain (principal); E78.00 Pure hypercholesterolemia, unspecified; I10 Essential (primary) hypertension; E03.9 Hypothyroidism, unspecified; E11.9 Type 2 diabetes mellitus without complications; Z79.84 Long term (current) use of oral hypoglycemic drugs; Z79.890 Hormone replacement therapy; Z79.899 Other long term (current) drug therapy; Z88.6 Allergy status to analgesic agent
CPT/HCPCS: 99284; 96374; 96375; 80053; 83690; 85025; 36415; 71101; J2405; J1885

== ENCOUNTER → 2023-05-31 | Outpatient (CLI) | payer OTHER, MEDICARE ==
[~2023-05-31] MED LIST changes: -GLIP5TAB11 PO; +GLIP5TAB15 PO
== END | disposition home or self-care (01) ==
LOC: RAH 12:14
PROVIDERS: ATTEND Internal Medicine Cardiovascular Disease
DX: J98.4 Other disorders of lung (principal); R06.09 Other forms of dyspnea; R07.9 Chest pain, unspecified
CPT/HCPCS: 71046

== ENCOUNTER → 2024-09-19 | Outpatient (CLI) | payer OTHER, MEDICARE ==
[~2024-09-19] VITALS: Ht 149.9 cm; Wt 52.9 kg
[~2024-09-19] MED LIST changes: -AMOX500C2 PO; -ATOR10 PO; +ATOR20TA65 PO; +CEPH500C2 PO; -CIPR-278 PO; +FURO40TA5 PO; -GLIP5TAB15 PO; -INSU100I24 SQ; -LEVO50CA4 PO; +LEVO50CA5 PO; -LOSA1TAB37 PO; +METO50TA18 PO; +NITR0.4T50 SL; +SERT-440 PO; +SODI650T PO; -VITAD50000 PO
[2024-09-19 11:28] LABS: HEMATOCRIT 34.9 % (36-48); MEAN CORPUSCULAR HEMOGLOBIN 31.3 pg (27.0-33.0); MEAN CORPUSCULAR HGB CONC 31.8 g/dL (32.0-36.0); MEAN CORPUSCULAR VOLUME 98.3 fL (79-99); RED BLOOD CELL COUNT(AUTO) 3.55 MIL/uL (4.00-5.50); RED CELL DISTRIBUTION WIDTH 13.6 % (11.0-15.5); WHITE BLOOD COUNT (AUTO) 5.2 K/uL (4.8-10.8)
[2024-09-19 11:38] LABS: CREATININE 6.8 mg/dL (0.5-1.0); INR 1.03 (0.85-1.15); POTASSIUM 4.6 mmol/L (3.5-5.1); PROTHROMBIN TIME 10.9 SEC (9.6-11.6)
[2024-09-19 11:39] LABS: PARTIAL THROMBOPLASTIN TIME 28.7 SEC (26.3-35.5)
[2024-09-19 11:47] VITALS: BP 226/134; PULSE 97; RESP 18; TEMP 98.6
--- NOTE | 2024-09-19 12:34 | HMCIMG ---
CHEST 1VW HISTORY: Preop COMPARISON: 06/25/2023 FINDINGS: A frontal projection of the chest was obtained. Prominent interstitial markings are seen with possible superimposed infiltrates. The heart is borderline enlarged. Right venous catheter is seen with distal tip in the plane of the superior inferior. Degenerative changes are seen. Aortic calcifications are seen. IMPRESSION: 1. Prominent interstitial markings.
--- NOTE | 2024-09-19 13:44 | EKG ---
[facility] Test Date: 2024-09-19 Test Time: 10:55:47 Pat Name: KUMAR SABILLON Department: [facility] Room: Gender: F Wet Wheeler: [id number] : 1960 Requested By: NIELS MENDOZA Order Number: [id number] Reading MD: Lucrecia Jauregui Measurements Intervals [place] Rate: 93 P: 58 MO: 150 QRS: -2 QRSD: 86 T: 100 QT: 370 QTc: 460 Interpretive Statements Normal sinus rhythm Possible Left atrial enlargement Abnormal QRS-T angle, consider primary T wave abnormality Compared to ECG 06/23/2023 04:42:34 T-wave abnormality now present Sinus tachycardia no longer present Myocardial infarct finding no longer present Early repolarization no longer present Electronically Signed On 09-20-2024 11:01:13 CDT by Lucrecia Jauregui Please click the below link to view image of tracing.
--- NOTE | 2024-09-19 13:45 | NUR ---
report dutch hernandez rn informed pt missed dialysis today and is scheduled for surgery tomorrow. also informed pt had questions about perma cath and pt did not take blood pressure medications so blood pressure very high. pt will take b/p meds once she gets home and call me with repeat b/p. received orders to cancel. dutch will notify pt.
--- NOTE | 2024-09-19 14:42 | NUR ---
f/u called pt to see if she rechecked b/p. pt has still not gotten home. pt informed of he importance of keeping b/p under control. did inform pt she was cancelled for tomorrows sx and dutch hernandez rn will be calling her
== END | disposition home or self-care (01) ==
LOC: EDSTATUS 10:00 → DAH 10:15
PROVIDERS: ATTEND Thoracic Surgery (Cardiothoracic Vascular Surgery)
DX: Z01.818 Encounter for other preprocedural examination (principal); J84.9 Interstitial pulmonary disease, unspecified; I21.9 Acute myocardial infarction, unspecified; R00.0 Tachycardia, unspecified; I70.0 Atherosclerosis of aorta; I12.0 Hypertensive chronic kidney disease with stage 5 chronic kidney disease or end stage renal disease; N18.6 End stage renal disease; M47.814 Spondylosis without myelopathy or radiculopathy, thoracic region
CPT/HCPCS: 80048; 85027; 85610; 85730; 86850; 86900; 86901; 36415; 71045; 93005; A6260